=== PATIENT | female | born 1935 | race Caucasian/White ===

== ENCOUNTER 2016-05-25 09:07 | Inpatient (IN) ==
--- NOTE | 2016-05-25 09:27 | Emergency Department Note ---
Disposition Clinical Impression: Weakness generalized, Abnormal ECG, Pleural effusion on left Disposition: Admitted As Inpatient Condition: Fair Referrals: NO,PCP [Primary Care Provider] - Forms: ED Satisfaction Letter General Adult HPI - General Chief complaint: ED Weakness Stated complaint: Weakness Time Seen by Provider: 05/25/16 09:15 Source: patient Limitations: no limitations - History of Present Illness Pain Scale: 0 - Related Data Home Medications Medication Instructions Recorded Confirmed No Known Home Drugs 05/25/16 05/25/16 Allergies Allergy/AdvReac Type Severity Reaction Status Date / Time No Known Allergies Allergy Verified 05/25/16 10:05 Past Medical History - Past Medical History Medical history: Reports: no medical history Psychiatric history: Reports: no psych history - Social History Smoking Status: Current every day smoker Smokeless Tobacco Status: No Alcohol use: Reports: none Drug use: Reports: none Physical Exam - General Limitations: no limitations General appearance: alert Course Vital Signs Temperature 97.7 F 05/25/16 09:10 Pulse Rate 81 05/25/16 09:10 Respiratory Rate 16 05/25/16 09:10 Blood Pressure 117/66 05/25/16 09:10 O2 Sat by Pulse Oximetry 95 05/25/16 09:10 Temperature 97.7 F 05/25/16 09:10 Pulse Rate 80 05/25/16 10:21 Respiratory Rate 18 05/25/16 10:21 Blood Pressure 122/77 05/25/16 10:21 O2 Sat by Pulse Oximetry 97 05/25/16 10:21 Oxygen Delivery Oxygen Delivery Room Air Medical Decision Making - Lab Data Result diagrams: 05/25/16 09:49 05/25/16 09:49 Lab Results 05/25/16 05/25/16 05/25/16 Range/Units 09:49 09:49 09:49 WBC 10.9 (4.3-11.1) K/mcL RBC 4.87 (3.82-4.97) M/mcL Hgb 14.7 (11.5-15.4) g/dL Hct 43.3 (35.3-44.9) % MCV 88.9 (83.0-100.0) fL MCH 30.2 (28.0-33.3) pg MCHC 33.9 (31.6-35.5) g/dL RDW 13.9 (11.5-14.5) % Plt Count 282 (140-400) K/mcL MPV 10.4 (9.4-12.4) fL Immature Gran % 0.3 (0-4) % Seg Neutrophils % 77.6 % Lymphocytes % 12.7 % Monocytes % 9.0 % Eosinophils % 0.1 % Basophils % 0.3 % Neutrophils # 8.5 (1.6-8.9) K/mcL Lymphocytes # 1.4 (0.6-4.6) K/mcL Monocytes # 1.0 (0.0-1.3) K/mcL Eosinophils # 0.0 (0.0-0.6) K/mcL Basophils # 0.0 (0.0-0.2) K/mcL PT (9.4-12.1) Seconds INR APTT (26.0-36.0) Seconds Sodium 135 L (136-145) mEq/L Potassium 3.4 L (3.5-4.5) mEq/L Chloride 101 (98-109) mEq/L Carbon Dioxide 24 (19-29) mEq/L BUN 17 (7-20) mg/dL Creatinine 1.13 H (0.57-1.11) mg/dL Est GFR ( Amer) 56 L (> 60) Est GFR (Non-Af Amer) 46 L (> 60) BUN/Creatinine Ratio 15 (6-26) Glucose 114 H (70-99) mg/dL Calculated Osmolality 282 (280-300) Calcium 9.4 (8.6-10.8) mg/dL Magnesium 2.4 (1.6-2.6) mg/dL Total Bilirubin 1.4 H (0.2-1.2) mg/dL AST 131 H (5-34) Units/L ALT 44 (0-55) Units/L Alkaline Phosphatase 67 (38-126) Units/L Troponin I (0-0.03) ng/mL Serum Total Protein 7.4 (6.0-8.3) g/dL Albumin 3.6 (3.5-5.0) g/dL Globulin 3.8 H (2.4-3.5) g/dL Albumin/Globulin Ratio 0.9 L (1.1-2.2) 05/25/16 05/25/16 Range/Units 09:49 09:49 WBC (4.3-11.1) K/mcL RBC (3.82-4.97) M/mcL Hgb (11.5-15.4) g/dL Hct (35.3-44.9) % MCV (83.0-100.0) fL MCH (28.0-33.3) pg MCHC (31.6-35.5) g/dL RDW (11.5-14.5) % Plt Count (140-400) K/mcL MPV (9.4-12.4) fL Immature Gran % (0-4) % Seg Neutrophils % % Lymphocytes % % Monocytes % % Eosinophils % % Basophils % % Neutrophils # (1.6-8.9) K/mcL Lymphocytes # (0.6-4.6) K/mcL Monocytes # (0.0-1.3) K/mcL Eosinophils # (0.0-0.6) K/mcL Basophils # (0.0-0.2) K/mcL PT 13.9 H (9.4-12.1) Seconds INR 1.3 APTT 32.3 (26.0-36.0) Seconds Sodium (136-145) mEq/L Potassium (3.5-4.5) mEq/L Chloride (98-109) mEq/L Carbon Dioxide (19-29) mEq/L BUN (7-20) mg/dL Creatinine (0.57-1.11) mg/dL Est GFR ( Amer) (> 60) Est GFR (Non-Af Amer) (> 60) BUN/Creatinine Ratio (6-26) Glucose (70-99) mg/dL Calculated Osmolality (280-300) Calcium (8.6-10.8) mg/dL Magnesium (1.6-2.6) mg/dL Total Bilirubin (0.2-1.2) mg/dL AST (5-34) Units/L ALT (0-55) Units/L Alkaline Phosphatase (38-126) Units/L Troponin I 19.32 H* (0-0.03) ng/mL Serum Total Protein (6.0-8.3) g/dL Albumin (3.5-5.0) g/dL Globulin (2.4-3.5) g/dL Albumin/Globulin Ratio (1.1-2.2) Critical Care Time Critical Care Time: Yes Total Critical Care Time: 30 Attestation: The patient presented with weakness but no chest pain. EKG abnormal and sent to the car jockey for review. IV heparin started. Troponin resulted markedly elevated. She was admitted to the medicine service Attestation Statement - Attestation Attestation: I examined this patient and my medical decision-making was reviewed with the OFFSET LABEL REWINDER/PA/Advanced Practice Nurse/Resident Physician. I agree with the documented findings, disposition and treatment plan as described except to the extent set forth below. Face to face time provided EKG shows an ST segment elevation pattern with reciprocal changes. I evaluated the patient and she adamantly denies chest pain now or prior to arrival. No dyspnea. She states she has never had an EKG before. Was never told that she had an abnormal EKG in the past. We do not have any old EKGs for comparison. I did have the car jockey look at the EKG because of the abnormality 09:54: Dr. Snow reviewed the ECG image. He recommends medical management and admission to the medicine service
[2016-05-25] MEDS ORDERED: 0.9 % Sodium Chloride 1,000 ML IVC ONE (09:37)
[2016-05-25] MEDS ORDERED: Aspirin 81 MG TAB.CHEW PO ONE (09:37)
--- NOTE | 2016-05-25 09:41 | Emergency Department Note ---
Disposition Clinical Impression: Weakness generalized, Abnormal ECG, Pleural effusion on left, Elevated troponin , Renal insufficiency Disposition: Admitted As Inpatient Condition: Fair Referrals: NO,PCP [Primary Care Provider] - Forms: ED Satisfaction Letter Weakness HPI - General Chief complaint: ED Weakness Stated complaint: Weakness Time Seen by Provider: 05/25/16 09:15 Source: patient Mode of arrival: private vehicle Limitations: no limitations Nursing Notes Reviewed: Yes Vital Signs Reviewed: Yes - History of Present Illness Pt Subjective Complaint: generalized weakness/fatigue Onset (ago): day(s) (3) Duration: intermittent Location: generalized Migration: none Pain Severity: none Pain Scale: 0 Improves with: none Worsens with: none Associated symptoms: Reports: denies other symptoms, loss of appetite. Denies: chest pain, confusion, dark stools, diaphoresis, dysuria, easy bruising, fever/ chills, headaches, nausea/vomiting, myalgias, rash, shortness of breath, syncope , other - Related Data Home Medications Medication Instructions Recorded Confirmed No Known Home Drugs 05/25/16 05/25/16 Allergies Allergy/AdvReac Type Severity Reaction Status Date / Time No Known Allergies Allergy Verified 05/25/16 10:05 All systems ED: reviewed and negative except as stated. Constitutional: Reports: as per HPI, weakness. Denies: fever, chills, weight change, night sweats Eyes: Denies: eye pain, eye discharge, vision change ENT ED: Denies: ear pain, throat pain, congestion, dysphagia Cardiovascular: Denies: chest pain, palpitations, dyspnea on exertion, orthopnea , edema, syncope Respiratory: Denies: cough, dyspnea, wheezes, sputum production Gastrointestinal: Denies: abdominal pain, nausea, vomiting, diarrhea Genitourinary: Denies: urgency, dysuria, frequency, hematuria Musculoskeletal: Denies: back pain, neck pain, joint swelling, arthralgia Integumentary: Denies: rash, abrasion, lesions Neurological: Denies: headache, weakness, numbness, paresthesias, confusion, abnormal gait, vertigo Endocrine: Denies: fatigue, heat or cold intolerance, polydipsia, polyuria Hematological/Lymphatic: Denies: easy bleeding, easy bruising, lymphadenopathy Allergic/Immunologic: Denies: facial swelling, urticaria, itchy eyes Past Medical History - Past Medical History Attestation: Yes The following information was validated with the patient. Source: patient, obtained from family Medical history: Reports: no medical history Surgical history: Reports: no surgical history Psychiatric history: Reports: no psych history HAND GLUER AND SLICER history: Reports: no HAND GLUER AND SLICER history - Social History Smoking Status: Current every day smoker Smokeless Tobacco Status: No Alcohol use: Reports: none Drug use: Reports: none Physical Exam - General Limitations: no limitations General appearance: alert, in no apparent distress - Head Head exam: atraumatic, normocephalic, normal inspection - Eye Eye exam: Present: normal appearance, PERRL. Absent: scleral icterus, conjunctival injection, periorbital swelling - ENT ENT exam: normal exam, normal oropharynx, mucous membranes moist - Neck Neck exam: Present: normal inspection, full ROM, trachea midline. Absent: tenderness, meningismus, lymphadenopathy, thyromegaly - Chest Chest inspection: Present: normal inspection, symmetric chest wall rise. Absent : tenderness - Respiratory Respiratory exam: Present: normal lung sounds bilaterally. Absent: respiratory distress, wheezes, stridor, accessory muscle use, prolonged expiratory phase - Cardiovascular Cardiovascular exam: Present: regular rate, irregular rhythm - Abdominal Exam Abdominal exam: Present: soft, Non-Tender. Absent: distention, guarding, rebound, rigidity, organomegaly, mass, pulsatile mass - Extremities Exam Extremities exam: Present: normal inspection, full ROM, normal capillary refill. Absent: tenderness, pedal edema, joint swelling, calf tenderness - Back Exam Back exam: Present: normal inspection, full ROM. Absent: tenderness - Neurological Exam Neurological exam: Present: alert, oriented X3, CN II-XII intact, normal gait - Psychiatric Psychiatric exam: Present: normal affect, normal mood - Skin Skin exam: Present: warm, dry, intact, normal color Course Course Narrative: Patient presents from home with her for evaluation of generalized weakness for the past three days. She states, "he made me come in." She points to her . He states that she has been very fatigued and just wanting to stay in bed for the last three days. She agrees with this assessment. She has not had much of an appetite either, but has been staying hydrated. She denies pain anywhere and specifically denies chest pain, chest pressure, heaviness, or any unusual sensation in her chest. She denies shortness of breath, dyspnea on exertion, pain with inspiration, cough, hemoptysis, nausea, vomiting, diarrhea, fever or chills. She has had no skin rashes. No neck pain or stiffness. No headache and no recent travel. She states that she is otherwise healthy, although she has not seen a doctor in over a decade. She takes no medications on a daily basis. She has smoked a pack a day for many years. She has never had a stress test, an EKG, a heart catheterization, or any surgeries. She is unsure about her family medical history. On exam, Mr. Salter is a very pleasant, cooperative, smiling and well- appearing. She is a little hard of hearing. She does not appear to be uncomfortable and her vitals are normal. She has no peripheral edema, no obvious heart murmur, and no adventitious breath sounds. Abdomen is soft and nontender. Neuro exam is normal. EKG is very concerning. She does not have an old EKG for comparison. She has deep Q waves in inferior leads as well as ST depression in the lateral and septal leads. The EKG was taken to the Metallurgical Engineer for Dr. Snow to review. He called back and we discussed the case. He believes that the patient most likely had an NY about three days ago when her symptoms began. He protects that her troponin will be elevated and he recommends medical management with hospitalist admission. He recommends starting aspirin and heparin now. The case has been discussed with Dr. Owens. He has had [id number] time with patient, has reviewed her EKG and agrees with the assessment and plan. - Consultations Consultation #1: Discussed the case with Dr. Snow. He has seen the ECG. He states that the patient most-likely had an NY 3 days ago as she has long Q waves. He predicts that her troponin will be elevated. He recommends medical management and admission to the hospitalist. Time: 09:45 Vital Signs Temperature 97.7 F 05/25/16 09:10 Pulse Rate 81 05/25/16 09:10 Respiratory Rate 16 05/25/16 09:10 Blood Pressure 117/66 05/25/16 09:10 O2 Sat by Pulse Oximetry 95 05/25/16 09:10 Temperature 97.7 F 05/25/16 09:10 Pulse Rate 80 05/25/16 09:34 Respiratory Rate 16 05/25/16 09:34 Blood Pressure 112/78 05/25/16 09:34 O2 Sat by Pulse Oximetry 97 05/25/16 09:34 Oxygen Delivery Oxygen Delivery Room Air Weakness - Medical Records Medical records reviewed: Yes I reviewed the patient's medical records. - Lab Data Lab results reviewed: Yes I reviewed the patient's lab results. Lab results narrative: Laboratory Last Values WBC 10.9 K/mcL (4.3-11.1) 05/25/16 09:49 RBC 4.87 M/mcL (3.82-4.97) 05/25/16 09:49 Hgb 14.7 g/dL (11.5-15.4) 05/25/16 09:49 Hct 43.3 % (35.3-44.9) 05/25/16 09:49 MCV 88.9 fL (83.0-100.0) 05/25/16 09:49 MCH 30.2 pg (28.0-33.3) 05/25/16 09:49 MCHC 33.9 g/dL (31.6-35.5) 05/25/16 09:49 RDW 13.9 % (11.5-14.5) 05/25/16 09:49 Plt Count 282 K/mcL (140-400) 05/25/16 09:49 MPV 10.4 fL (9.4-12.4) 05/25/16 09:49 Immature Gran % 0.3 % (0-4) 05/25/16 09:49 Seg Neutrophils % 77.6 % 05/25/16 09:49 Lymphocytes % 12.7 % 05/25/16 09:49 Monocytes % 9.0 % 05/25/16 09:49 Eosinophils % 0.1 % 05/25/16 09:49 Basophils % 0.3 % 05/25/16 09:49 Neutrophils # 8.5 K/mcL (1.6-8.9) 05/25/16 09:49 Lymphocytes # 1.4 K/mcL (0.6-4.6) 05/25/16 09:49 Monocytes # 1.0 K/mcL (0.0-1.3) 05/25/16 09:49 Eosinophils # 0.0 K/mcL (0.0-0.6) 05/25/16 09:49 Basophils # 0.0 K/mcL (0.0-0.2) 05/25/16 09:49 PT 13.9 Seconds (9.4-12.1) H 05/25/16 09:49 INR 1.3 05/25/16 09:49 APTT 32.3 Seconds (26.0-36.0) 05/25/16 09:49 Sodium 135 mEq/L (136-145) L 05/25/16 09:49 Potassium 3.4 mEq/L (3.5-4.5) L 05/25/16 09:49 Chloride 101 mEq/L (98-109) 05/25/16 09:49 Carbon Dioxide 24 mEq/L (19-29) 05/25/16 09:49 BUN 17 mg/dL (7-20) 05/25/16 09:49 Creatinine 1.13 mg/dL (0.57-1.11) H 05/25/16 09:49 Est GFR ( Amer) 56 (> 60) L 05/25/16 09:49 Est GFR (Non-Af Amer) 46 (> 60) L 05/25/16 09:49 BUN/Creatinine Ratio 15 (6-26) 05/25/16 09:49 Glucose 114 mg/dL (70-99) H 05/25/16 09:49 Calculated Osmolality 282 (280-300) 05/25/16 09:49 Calcium 9.4 mg/dL (8.6-10.8) 05/25/16 09:49 Magnesium 2.4 mg/dL (1.6-2.6) 05/25/16 09:49 Total Bilirubin 1.4 mg/dL (0.2-1.2) H 05/25/16 09:49 AST 131 Units/L (5-34) H 05/25/16 09:49 ALT 44 Units/L (0-55) 05/25/16 09:49 Alkaline Phosphatase 67 Units/L (38-126) 05/25/16 09:49 Troponin I 19.32 ng/mL (0-0.03) H* 05/25/16 09:49 Serum Total Protein 7.4 g/dL (6.0-8.3) 05/25/16 09:49 Albumin 3.6 g/dL (3.5-5.0) 05/25/16 09:49 Globulin 3.8 g/dL (2.4-3.5) H 05/25/16 09:49 Albumin/Globulin Ratio 0.9 (1.1-2.2) L 05/25/16 09:49 - Radiology Data Radiology results reviewed: Yes I reviewed the patient's radiology results. Chest X-Ray 05/25/16 09:35 IMPRESSION: Mild streaky opacity to left lung base towards costophrenic angle along with mild blunting of the costophrenic angle concerning for small left pleural effusion with associated atelectasis or infiltrate. Clinical correlation and continued follow-up suggested. D/ / 05/25/2016 09:54:04 Denilson Maya MD / [email or web address] Interpreting Provider: Denilson Maya MD - EKG Data EKG attestation: Yes I reviewed and interpreted this EKG. EKG shows normal: sinus rhythm Rate: normal Rhythm: PAC's [place]/QRS: normal ST segment depression in: I, aVL Q waves: II, III, aVF, v2, v4 When compared to previous EKG there are: previous EKG unavailable Interpretation: other (probable recent NY - as per Dr. Snow) - Core Measures AMI Core Measures Followed: Yes Critical Care Time Critical Care Time: Yes (Dx and treatment of NY) Total Critical Care Time: 30 Attestation: Patient required critical care 30 minutes for time at bedside, time spent reviewing EKG, lab results and chest x-ray, consulting with Dr. Snow, the interventional list, reviewing results with the patient and her , and documenting the medical record. patient appears to have had an NY within the last several days - most likely when her symptoms began. Her troponin is 19. She has significant EKG changes. She was started on a heparin drip and admitted to telemetry. Failure to initiate the above treatment urgently would likely have resulted in sudden clinically significant life-threatening deterioration in the patient's condition.
[2016-05-25] MEDS ORDERED: *HR* Heparin 5,000 UNIT/ML VIAL IVP ONE (09:53)
[2016-05-25] MEDS ORDERED: *HR* Heparin 5,000 UNIT/ML VIAL IVP PRN (09:53)
[2016-05-25] MEDS ORDERED: Heparin 25,000 UNIT/500 ML D5W 25,000 UNIT/500 ML MLS IVC SCH (10:00)
[2016-05-25 10:06] LABS: Basophils % 0.3 %; Eosinophils % 0.1 %; Hematocrit 43.3 % (35.3-44.9); Hemoglobin 14.7 g/dL (11.5-15.4); Immature Granulocytes % 0.3 % (0-4); Lymphocytes # 1.4 K/mcL (0.6-4.6); Lymphocytes % 12.7 %; Mean Corpuscular HGB Conc 33.9 g/dL (31.6-35.5); Mean Corpuscular Hemoglobin 30.2 pg (28.0-33.3); Mean Corpuscular Volume 88.9 fL (83.0-100.0); Mean Platelet Volume 10.4 fL (9.4-12.4); Neutrophils # 8.5 K/mcL (1.6-8.9); Platelet Count 282 K/mcL (140-400); Red Blood Count 4.87 M/mcL (3.82-4.97); Red Cell Distribution Width 13.9 % (11.5-14.5); Segmented Neutrophils % 77.6 %
[2016-05-25 10:11] LABS: INR 1.3; Prothrombin Time 13.9 Seconds (9.4-12.1)
[2016-05-25 10:14] LABS: Activated Partial Thrombo Time 32.3 Seconds (26.0-36.0)
[2016-05-25 10:21] LABS: Albumin 3.6 g/dL (3.5-5.0); Albumin/Globulin Ratio 0.9 (1.1-2.2); Bilirubin,Total 1.4 mg/dL (0.2-1.2); Calcium 9.4 mg/dL (8.6-10.8); Globulin 3.8 g/dL (2.4-3.5); Potassium 3.4 mEq/L (3.5-4.5); Total Protein 7.4 g/dL (6.0-8.3)
[2016-05-25 11:04] LABS: Thyroid Stimulating Hormone 7.375 mcIU/mL (0.350-4.840)
[2016-05-25 11:16] LABS: Bilirubin,Direct 0.5 mg/dL (0.0-0.5); Bilirubin,Indirect 0.9 mg/dL (0.0-1.2)
--- NOTE | 2016-05-25 11:19 | Internal Med History&Physical ---
Date of Encounter: 05/25/16 Time of Encounter: 11:16 Assessment and Plan (1) Renal insufficiency Current visit: Yes Status: Acute Likely due to decreased PO intake the past 3 days. gentle hydration. follow intake and output. (2) ST elevation myocardial infarction (STEMI) of inferoposterior wall Current visit: Yes Status: Acute Patient had info posteriors stemming on silk likely Saturday night 3 days ago. So complaint is fatigue. No active chest. No clinical signs of heart failure or arrhythmias on the school guard. Patients will be started on full anti- ischemic medications including aspirin beta angelo and full dose heparin. Echocardiogram will be checked. Cardiology service will see the patient. Continous telemetry monitoring for arrythmias. (3) Elevated TSH Current visit: Yes Status: Acute Would check free T4. Internal Medicine - H&P: HPI Chief complaint: fatigue History of present illness: Ms. Salter is a 80 year old female with no significant past medical history presents to the emergency room today with the main complain over easy fatigue ability. On Saturday night approximately 3 days ago patient started noticing easy fatigue ability, decrease exercise tolerance, tiredness etc. She also complained that night all some sweating. Her appetite has not been so good but she denied any vomiting. She denied any chest pain whatsoever no shortness of breath orthopnea paroxysmal optimal Sunita or lower extremity swelling. No syncope. No prior history of heart disease. On arrival to the emergency room patient was found to have evidence of info posteriors STEMI with development of Q waves. She is a smoker smokes 1 to 2 cigarettes a day for the past 30 years. she denies IV drug use. Past Med Surg Social Fam HX - Past Medical History Medical history: no medical history Psychiatric history: no psych history - Past Surgical History Surgical History: no surgical history - Social History Smoking Status: Current every day smoker Smokeless Tobacco Status: No Alcohol use: none Drug use: none Internal Medicine - H&P: Meds No Known Home Drugs 05/25/16 [History] Allergies No Known Allergies Allergy (Verified 05/25/16 10:05) All Systems PM: A 10-system review of systems was performed and is negative for pertinent findings except as documented above in the HPI. Review of systems: 10 point review of systems is negative except for HPI - Constitutional Vitals: Temp Pulse Resp BP Pulse Ox 97.7 F 80 16 122/77 97 05/25/16 09:10 05/25/16 10:21 05/25/16 10:59 05/25/16 10:59 05/25/16 10:21 Exam: Gen.: patient is alert oriented not in distress. Cardiac: Normal S1 S2 no additional sounds or murmurs chest: clear to auscultation abdomen soft nontender nondistended normal bowel sounds lower extremity: lax calf muscles neuro no focal deficit Internal Med - H&P Results - Labs CBC & Chem 7: 05/25/16 09:49 05/25/16 09:49
[2016-05-25] MEDS: 0.9 % Sodium Chloride 500 ML IVC SCH (11:44)
--- NOTE | 2016-05-25 13:09 | Cardiology Consult Note ---
<Jorge Grier - Last Filed: 05/25/16 15:06> Date of Encounter: 05/25/16 Time of Encounter: 12:30 Assessment and Plan (1) Acute DC Current Visit: Yes Status: Acute Per cardiology: -Patient presents with 3 day weakness and fatigue. -ECG with ST elevation in III, and avf. ST depression in I,avr, avl. Q waves noted. reviewed and determined not STEMI. -Initial troponin 19.32. -On asa, beta angelo, statin, heparin drip. -Echo pending. -Recommend LHC. Risks and benefits of LHC explained to patient and family. Patient agreeable. Discussed with and . -Will decrease asa to 81mg po daily. -Further recommendations pending LHC. (BESSIE) Qualifiers: Myocardial infarction ST status: non-ST elevation myocardial infarction Qualified Code(s): I21.4 - Non-ST elevation (NSTEMI) myocardial infarction (2) Renal insufficiency Current Visit: Yes Status: Acute Per cardiology: -Creatinine 1.13. Unknown baseline. -Management per primary service. (BESSIE) (3) Elevated TSH Current Visit: Yes Status: Acute Per cardiology: -TSH elevated. -No history of hypothyroidism. -Unknown basleline. -Management per primary service. (BESSIE). (4) Tobacco abuse Current Visit: Yes Status: Acute Per cardiology: -Current smoker. -Smoked 0.25 packs per day for 60 years for a 20 pack year history. -Smoking cessation education given. I spent 5 minutes reviewing education. (BESSIE) . Discussion w patient/family: The assessment and plan as outlined above was discussed with the patient and/or family members who expressed understanding and agreement. All questions were answered. Thank you for involving us in the care of your patient. Please call with any questions. Patient seen and examined with NORTH Paredes Discussed and reviewed with and . History of Present Illness Consult date: 05/25/16 Requesting physician: Jhon Burrell Consult reason: STEMI? Chief complaint: Weakness History of present illness: Ms. Salter is a 80 year old female with no significant past medical history. Patient states she has not seen a provider since the of her youngest son, who is 52. Patient presented to ER with weakness. Patient states weakness started on Saturday. She also states that she did not want to come into the hospital, but her made her come. ER performed ECG which showed Sinus rhythm, HR [address] elevation in III, avf and ST depression in I, avr, avl. Q waves noted. reviewed ECG and determined that this was not a STEMI. Patient was admitted to the floor. Patient denies ever having chest pain, heaviness, tightness, or shortness of breath. Pateint is a current smoker and smoked about 0.25 pack per day for 60 years. (BESSIE) Past Med Surg Social Fam HX - Past Medical History Attestation: Yes The following information was validated with the patient. Medical history: no medical history Psychiatric history: no psych history - Past Surgical History Surgical History: no surgical history - Social History Smoking Status: Current every day smoker Packs per day: 0.5 Smokeless Tobacco Status: No Alcohol use: none Drug use: none Medications and Allergies No Known Home Drugs 05/25/16 [History] Allergies No Known Allergies Allergy (Verified 05/25/16 10:05) All Systems Review: A 10-system review of systems was performed and is negative for pertinent findings except as documented above in the HPI. - Constitutional Constitutional: fatigue - Cardiovascular Cardiovascular: as per HPI Physical Examination Vital Signs, Last 4 Hours Temp Pulse Resp BP Pulse Ox 05/25/16 11:12 98.2 F 77 16 132/86 96 General: Conversant, No Apparent Distress HEENT: Atraumatic, Normocephaly, Mucus Membranes Moist Neck: No JVD, Normal carotid pulses Cardiac: Reg Rate and Rhythm, Normal S1 and S2, No Murmur Lungs: Normal Breath Sounds, No Wheeze, Rales, Rhonchi Neuro: Alert and responsive, No focal deficits noted Abdomen: Soft, Non-Tender Skin: No rashes noted on visualized skin Musculoskeletal: No Chest Wall Tenderness Extremities: No Clubbing, No Cyanosis, No Edema, Normal Pulses Results 05/25/16 09:49 05/25/16 09:49 Impressions Chest X-Ray 05/25/16 09:35 IMPRESSION: Mild streaky opacity to left lung base towards costophrenic angle along with mild blunting of the costophrenic angle concerning for small left pleural effusion with associated atelectasis or infiltrate. Clinical correlation and continued follow-up suggested. D/ / 05/25/2016 09:54:04 Denilson Maya MD / [email or web address] Interpreting Provider: Denilson Maya MD Active Medications Aspirin (Aspirin) 325 mg PO DAILY BETO Stop: 11/25/16 09:01 Atorvastatin Calcium (Lipitor) 20 mg PO HS BETO Stop: 11/24/16 21:01 Famotidine (Pepcid) 20 mg PO DAILY BETO PRN Reason: Protocol Stop: 11/25/16 09:01 Heparin Sodium (Porcine) (Heparin) 3,800 unit 60 unit/kg (3800 unit) IVP Q6HR PRN PRN Reason: SEE COMMENTS Stop: 11/24/16 09:54 Heparin Sodium (Porcine) (Heparin) 1,900 unit 30 unit/kg (1900 unit) IVP Q6H PRN PRN Reason: SEE COMMENTS Stop: 11/24/16 09:54 Heparin Sodium/Dextrose (Heparin 25,000 Unit/500 Ml D5w) 25,000 unit in 500 mls @ 15.241 mls/hr IVC .Q24H BETO; 12 UNIT/KG/HR PRN Reason: Protocol Stop: 11/24/16 10:01 Last Admin: 05/25/16 10:18 Dose: 12 unit/kg/hr, 15.241 mls/hr Sodium Chloride (0.9 % Sodium Chloride) 500 mls @ 40 mls/hr IVC .[id number] BETO Stop: 11/24/16 11:16 Last Admin: 05/25/16 11:44 Dose: 40 mls/hr Metoprolol Tartrate (Lopressor) 12.5 mg PO BID BETO Stop: 11/24/16 12:00 Laboratory Tests 05/25/16 05/25/16 05/25/16 09:49 09:49 09:49 Hgb 14.7 Hct 43.3 Potassium 3.4 L Creatinine 1.13 H Est GFR (Non-Af Amer) 46 L Troponin I 19.32 H* TSH 7.375 H - Imaging and Cardiology Chest Xray: report reviewed Cardiac cath: pending - EKG Interpretation EKG results cardiology: personally reviewed (ECG with sinus rhythm, HR 82. ST elevation in leads III and avf. ST depression in Leads I, avr, avl. Q waves noted.), other (Telemetry reviewed with average HR 89. Occasional PVCs noted. Ferequent PACs noted.) Consult Discharge Plan - Plan Referrals: Gay Turner [employer] [Advanced Practice Nurse] - 05/31/16 9:00 am (Please show up 30 mins early to fill out paper work. Take with you to your appointment you Picture ID, Ins. Cards. and a list of all medications. Take discharge paper work. If you have to cancel please call [phone] within 24 hours of your appointment. Thanks) <Ilda Allen - Last Filed: 05/25/16 15:44> Date of Encounter: 05/25/16 Assessment and Plan Discussion w patient/family: The assessment and plan as outlined above was discussed with the patient and/or family members who expressed understanding and agreement. All questions were answered. Thank you for involving us in the care of your patient. Please call with any questions. History of Present Illness History of present illness: Ms. Salter is a 80 year old female All Systems Review: A 10-system review of systems was performed and is negative for pertinent findings except as documented above in the HPI. Results 05/25/16 09:49 05/25/16 09:49 - Attending Attestation I examined this patient and my medical decision-making was reviewed with the COUNTER CLERK [employer]/PA/Advanced Practice Nurse/Resident Physician. I agree with the documented findings, disposition and treatment plan. Ms. Salter presents with profound weakness and was incidentally discovered to have an abnormal ECG suggesting a recent inferior infarct. Her symptoms began this past Saturday. She has not seen a physician since the of her son 52 years ago. She has smoked for 60 years. Her troponin has now elevated to 19. We have discussed proceeding with a [facility]. The R/B/A of the procedure were discussed. Patient expressed understanding and agreement. Smoking cessation was strongly encouraged.
[2016-05-25] MEDS ORDERED: 0.9 % Sodium Chloride 1,000 ML ONE ×2 (14:01→14:43)
[2016-05-25] MEDS ORDERED: Heparin 1,000 UNITS/500 mL NS 500 ML ONE (14:02)
[2016-05-25] MEDS ORDERED: *HR* Heparin 10,000 UNIT/10 ML VIAL ONE (14:02)
[2016-05-25] MEDS ORDERED: Nitroglycerin 1,000 MCG/10 ML VIAL IV ONE (14:09)
[2016-05-25] MEDS ORDERED: *HR* Midazolam HCl 2 MG/2 ML VIAL ONE (14:42)
[2016-05-25] MEDS ORDERED: *HR* FentaNYL (PF) 100 MCG/2 ML VIAL ONE (14:43)
--- NOTE | 2016-05-25 15:13 | Pre-Sedation Evaluation ---
Pre-sedation evaluation - Pre-sedation checklist Date of procedure: 05/25/16 Procedure: [facility] Recent Vitals: Last Vital Signs Temp 98.2 F 05/25/16 11:12 Pulse 77 05/25/16 11:12 Resp 16 05/25/16 11:12 BP 132/86 05/25/16 11:12 Pulse Ox 96 05/25/16 11:12 H&P (including ROS) documented in medical record: Yes Previous reaction to sedatives/anesthetics: No Dietary Status: NPO after Midnight Airway Assessment: Patient can open mouth completely, TMJ function normal Dentition: No loose teeth or bridges ASA Classification *see protocol: CLASS II-Mild systemic disease Plan of Care: Pt appropriate candidate for procedure/moderate/conscious sedation , Risks/benefits of procedure/sedation discussed w/ patient/family
--- NOTE | 2016-05-25 15:55 | Invasive Diagnostic Lab Proc ---
Name: Roxana Salter Date of Study: 05/25/2016 Date: 1935 Ht: 61.8in Medical Record#: [id number] Age: 80 Wt: 141.10lb Gender: Female BSA: 1.64 Order #: [id number] BMI: 25.96 Physicians Procedure Physician: Paul Snow MD, FACC Referring MD: Referring MD: Staff Name Position Time In Trinity White RT Monitor 03:08 PM John Sethie RT (R) Scrub 03:08 PM Asha Delacruz RN Racebook Writer 03:08 PM Indications Indication Non-Stemi Procedures Performed Procedure L HRT ARTERY/VENTRICLE ANGIO Pre-Procedure Checklist Informed consent is complete signed and on chart. H\\T\\P is on chart. ID band is on and ID verified with patient. Patient NPO for procedure The procedure was described for the patient and questions were answered. Blood Pressure: 132/67 ECG is on chart. Rhythm: NSR Plan of Care Patient will tolerate the procedure without complications. Adequate level of comfort will be maintained. Hemodynamics will remain stable Patient will recover from procedure without complications. Respiratory function will be maintained. Cardiac rhythm will remain stable. Patient temperature will be maintained. Patient and/or family have verbalized understanding of the procedure. Patient Education Chief Complaint/Reason for Test: Cardiac Cath Developmental Category: Geriatric (65+ years) Developmentally Appropriate for Age: Yes Learning Barriers: None Education Needs: Procedure Education Method: Verbal Information Taught: Cardiac Cath Educational Evaluation: Able to repeat information Intravenous Access Time IV Size Location DC'd Fluid/Drip Rate Units RN 01:53 PM 20g 1 /" Patent On Arrival 0.9NaCl 25 Allergies No Known Allergies Vital Signs Time BP (mmHg) HR (bpm) O2 Sat. RR (bpm) LOC 01:53 PM 132 / 86 77 96 % 16 03:11 PM / % 5 = Fully awake and oriented or at pre-proc level 03:11 PM / % 4 = Oriented but drowsy 03:05 PM 157 / 92 90 97 % 24 03:09 PM 132 / 67 88 98 % 6 03:14 PM 99 / 56 67 93 % 25 03:19 PM 92 / 52 102 96 % 20 03:22 PM 102 / 60 85 96 % 23 03:24 PM 110 / 66 81 96 % 22 03:29 PM 118 / 63 81 97 % 22 03:34 PM 121 / 74 80 96 % Procedural Medications Time Medication Dose Units Method Given By 03:10 PM Oxygen 2 L/min nasal cannula Asha Delacruz RN 03:10 PM Versed 2 mg Intravenous Asha Delacruz RN 03:10 PM Fentanyl 50 mcg Intravenous Asha Delacruz RN 03:17 PM Lidocaine 2% 14 ml Subcutaneous Paul Snow MD, [facility] ASA Classification: CLASS II- Mild systemic disease (i.e. well-controlled diabetes, hypertension, asthma, cigarette smoking) Radha Score Preprocedure Postprocedure Activity 2- Moves 4 extremities sustained head lift Activity 2- Moves 4 extremities sustained head lift Circulation 2- SBP +/= 20 points of pre-anesthetic level Circulation 2- SBP +/= 20 points of pre-anesthetic level Consciousness 2- Awake and alert oriented x 3 Consciousness 2- Awake and alert oriented x 3 O2 Saturation 2- Able to maintain O2 satruation of 92% on room air O2 Saturation 2- Able to maintain O2 satruation of 92% on room air Respiratory 2- Able to deep breathe and cough well Respiratory 2- Able to deep breathe and cough well Total Score 10 Total Score 10 Contrast Agent: Isovue Diagnostic Contrast: 55 ml Total Contrast: 55 ml Fluoro Dose: 145 mGy Procedure Log Time Note Enter By 03:03 PM Vitals capture started with the following parameters, Patient=Adult, Interval=5 min, Initial Bistrmkl=184 mmHg, Deflation Rate=5 mmHg, Cuff placed on Left Arm 03:03 PM CathStat 03:05 PM HR=90 bpm, BGOO=311/92 mmhg, SpO2=97.0 %, Resp=24 B/min 03:08 PM Pt arrived to clinical laboratory assistant 2 at 15:08 [email or web address] 03:08 PM Trinity White RT Position: Monitor Time in: 15:08 [email or web address] 03:08 PM Maite Sethi RT (R) Position: Scrub Time in: 15:08 [email or web address] 03:08 PM Asha Delacruz RN Position: Racebook Writer Time in: 15:08 kkner 03:08 PM staff aware pt has bilateral hearing aids kkallner 03:09 PM Patient charges- Angio tray pack, Navilyst 3mm J, Pulse Oximetry and ACIST tubing and transducer [email or web address] 03:09 PM Case Delayed No [email or web address] 03:09 PM Hair removed from procedure site in procedure lab using clippers. Bilateral groin prepped with Chloraprep by Trinity White, safety strap applied then patient was draped. Skin intact. kk 03: PM Physician arrived 15:: PM ASA Class CLASS II- Mild systemic disease (i.e. well-controlled diabetes, hypertension, asthma, cigarette smoking) kkner : PM Meet and camila completed : PM Sign in performed according to hospital policy. kk 03: PM Procedure start 15: 03:09 PM HR=88 bpm, FFZT=446/67 mmhg, SpO2=98.0 %, Resp=6 B/min, Comment=sr 03:10 PM Pressure channel 1 zeroed. 03:10 PM Time: 15:10 Oxygen on at 2 L/min per nasal cannula by Asha Delacruz RN 03:10 PM Time: 15:10 Versed 2 mg Intravenous Given by Asha Delacruz RN jina 03:10 PM Time: 15:10 Fentanyl 50 mcg Intravenous Given by Asha Delacruz RN jina 03:11 PM Time: 15:11 Patient comfortable and pain free: Yes :11 PM Time: 15:11LOC: 5 = Fully awake and oriented or at pre-proc level 03:12 PM Clinical Presentation: Non-STEMI 03:14 PM HR=67 bpm, NIBP=99/56 mmhg, SpO2=93.0 %, Resp=25 B/min 03:16 PM Time out performed according to hospital policy 03:18 PM Time: 15:17 14 ml Lidocaine 2% to left groin Subcutaneous Given by Paul Snow MD, FACC ner 03:19 PM OG=555 bpm, NIBP=92/52 mmhg, SpO2=96.0 %, Resp=20 B/min, Comment=sr 03:21 PM Access obtained by percutaneous puncture. 5Fr 10cm Terumo [place] sheath placed in left Femoral artery. [id number] ner 03:21 PM 5Fr FL 4 catheter inserted over the wire DNC kkner : PM wire removed :22 PM LCA angiography performed in multiple views. [email or web address] 03:22 PM NIBP STAT measurement started. 03:22 PM Recorded Pressure: Ao, HR=81, Condition=Condition 1 (Aorta) Ao 86/54/68 03:22 PM HR=85 bpm, MWTQ=443/60 mmhg, SpO2=96 %, Resp=23 B/min 03:23 PM Catheter removed [email or web address] 03:23 PM 5Fr FR 4 catheter inserted over the wire DN [email or web address] 03:24 PM HR=81 bpm, QPJE=334/66 mmhg, SpO2=96.0 %, Resp=22 B/min 03:24 PM wire removed [email or web address] 03:25 PM Catheter removed kkallner 03:26 PM 5Fr 3DRC catheter inserted over the wire [id number] kkallner 03:26 PM wire removed kkallner 03:26 PM Time: 15:11LOC: 4 = Oriented but drowsy kkallner 03:26 PM Time: 15:11 Patient comfortable and pain free: Yes [email or web address] 03:26 PM RCA angiography performed in multiple views. [email or web address] 03:27 PM Recorded Pressure: Ao, HR=78, Condition=Condition 1 (Aorta) Ao 98/70/84 03:28 PM Catheter removed kkallner 03:28 PM 5Fr Pigtail catheter inserted over the wire [facility] kkallner 03:28 PM wire removed kkallner 03:28 PM Catheter selectively placed in left ventricle kkallner 03:29 PM Pressure channel 1 zeroed. 03:29 PM HR=81 bpm, MYEX=787/63 mmhg, SpO2=97 %, Resp=22 B/min 03:29 PM Bolus angiogram of left Ventricle complete: 12 ml/sec for a total of 20 mls kkallner 03:29 PM Recorded Pressure: LV, HR=82, Condition=Condition 1 (Left Ventricle) LV 104/0/9 03:30 PM Recorded Pressure: LV, Ao, HR=78, Condition=Condition 1 (Left Ventricle) LV 106/1/10, (Aorta) Ao 99/54/73 03:31 PM 5Fr FL 4 catheter inserted over the wire [facility] kkallner 03:31 PM wire removed kkallner 03:31 PM additional views of LCA obtained kkallner 03:32 PM Recorded Pressure: Ao, HR=81, Condition=Condition 1 (Aorta) Ao 98/57/75 03:32 PM Catheter removed [email or web address] 03:33 PM Bolus angiogram of left Femoral complete: 2 ml/sec for a total of 4 mls kkallner 03:34 PM Procedure completed at 15:34 [email or web address] 03:34 PM HR=80 bpm, GTEY=516/74 mmhg, SpO2=96.0 % 03:34 PM Sign out completed: Radiation Dose 145.41 mGy Fluoro Time: 2.4 Isovue 370 - 200ml contrast 55 ml given by Paul Snow MD, FACC. Complications: NoneCardiac Rehab Consult needed: YesConfirmed administered medications: Yes [email or web address] 03:35 PM Isovue 370 - 200ml,1 Bottle(s) used. [email or web address] 03:36 PM Arterial sheath pulled, Mynx closure device used and was Successful [id number] S/N. kkallner 03:36 PM Post ECG NSR kkallner 03:36 PM Post Blood Pressure 121/74 kkallner 03:37 PM 15:36 Post Pulses Bilateral DP \\T\\ PT 1+ kkallner 03:37 PM Information taught Cardiac Cath and Mynx kkallner 03:37 PM Education needs Procedure, Plan of Care, and Responsibilities of Patient in Care [email or web address] 03:37 PM Learning barriers :None kkallner 03:37 PM Education Methods Verbal kkallner 03:37 PM Education evaluation Able to repeat information kkallner 03:38 PM Site status No bleeding/hematoma - Lt Groin as reported by Maite Sethi RT (R) at 15:37 kkallner 03:38 PM Opsite applied kkallner 03:38 PM Plavix, Effient or Brilinta given No kkallner 03:38 PM Delay to floor No kkallner 03:38 PM Patient out of room: 15:38 kkallner 03:39 PM Family placed in consult room. [email or web address] 03:39 PM Complications: None kkallner 03:39 PM Fluoro Time: 2.4 [email or web address] 03:39 PM Isovue 370 - 200ml contrast 55 ml given by Paul Snow MD, FACC. [email or web address] 03:39 PM Radiation Dose 145.41 mGy kkallner 03:40 PM Lesion found in Mid LAD. Pre Stenosis: 95 Pre COLTON Flow: [email or web address] 03:40 PM Lesion found in 1st Marginal. Pre Stenosis: 99 Pre COLTON Flow: kkallner 03:41 PM Lesion found in 2nd Marginal. Pre Stenosis: 95 Pre COLTON Flow: kkallner 03:41 PM Lesion found in Proximal RCA. Pre Stenosis: 100 Pre COLTON Flow: [email or web address] 03:41 PM Mid/Distal Left Anterior Descending Coronary Artery and diagonal branches with 95% stenosis. If graft is supplying this area, 0 % stenosis kkallner 03:41 PM Left Main Coronary Artery with 0% stenosis kkallner 03:41 PM Proximal Left Anterior Descending Coronary Artery with 0% stenosis. If graft is supplying this territory, 0 % stenosis. kkallner 03:41 PM Circumflex, Obtuse Marginal, Left Posterior Descending, and Left Posterolateral Coronary Arteries with 99 % stenosis. If graft is supplying this area, 0 % stenosis kkallner 03:41 PM Right Coronary, Right Posterior Descending Arteries with Right Posterolateral and Acute Marginal branches with 100 % stenosis. If graft is supplying this area, 0 % stenosis kkallner 03:41 PM Ramus with 0% stenosis. If graft is supplying this area, 0 % stenosis kkallner 03:[address] Michael vega for CABG consult kkallner 03:43 PM Coronary Dominance: right kkallner 03:45 PM Lesion found in Mid Circumflex. Pre Stenosis: 60 Pre COLTON Flow: [email or web address] 03:47 PM Report given to Darlin GOODMAN Pt taken to Room #6. 15:47 [email or web address] Complications Complication None None Hemodynamics Pressures Site Systolic/A Wave Diastolic/V Wave Mean AO 86 54 68 AO 98 70 84 LV 104 0 9 LV 106 1 10 AO 99 54 73 AO 98 57 75 Post Procedure Information Blood Pressure: 121/74 mmHg Rhythm: NSR Post procedural instructions were given Surgery consult for CABG Closure Device Time Device Success/Fail 05/25/2016 3:39:00 PM MynxGrip Successful Site Checks Time Location Status Staff Sheath In? Note 03:37 PM Lt Groin No bleeding/hematoma Maite Sethi RT (R) Pulses Time Site Pre-Procedure Post-Procedure Note 05/25/2016 1:53:00 PM Bilateral radial 2+ 05/25/2016 1:53:00 PM Bilateral DP \\T\\ PT 1+ 3:36:00 PM Bilateral DP \\T\\ PT 1+ Updated by Trinity White, RT (R) on 05/25/2016 3:48:32 PM electronically signed on 05/25/2016 3:49:07 PM with status of Final
--- NOTE | 2016-05-25 16:04 | Invasive Diagnostic Lab ---
Name: Roxana Salter Date of Study: 05/25/2016 Date: 1935 Ht: 157.0 cm /61.8 in Medical Record#: [id number] Age: 80 Wt: 64. kg / 141.10 lb Account/Order#: [id number] Gender: Female BSA: 1.64 Order #: [id number] Fluoro Dose: 145 mGy BMI: 25.96 Procedure Physician: Paul Snow MD, FACC Referring MD: Referring MD: Procedures Performed: LEFT HEART CATH Iliofemoral angiography Indications: Non-Stemi Impressions: There is severe three vessel coronary artery disease. The left ventricle has normal contractility EF 60% Recommendations: Optimal medical therapy of patient's disease. Aggressive risk factor modification. Suggest patient have Elective coronary artery bypass surgery. History/Risk Factors: renal insufficiency fatigue Current/Recent Smoker Procedure Access obtained in the left Femoral artery by percutaneous puncture Complications: None, None Contrast: Isovue 55ml Closure Device: MynxGrip Hemodynamics: Pressures Site Systolic/ A Wave Diastolic/ V Wave End Diastolic/ Mean HR AO 86 54 68 81 AO 98 70 84 78 LV 104 0 9 82 LV 106 1 10 74 AO 99 54 73 83 AO 98 57 75 81 LV Ventriculography Ejection Method: LV Gram Ejection Fraction: 60% Wall Motion: SOUTH Anterobasal Hyperkinesis Anterolateral Hyperkinesis Apical: Hyperkinesis Inferoapical Mild Hypokinesis Inferobasal Severe Hypokinesis Coronary Dominance: right Lesion Findings/Interventions * Left Main Coronary Artery The LMCA is angiographically free of disease. * Left Anterior Descending There is a 70% proximal LAD stenosis and 95% and 70 stenosis in the Mid LAD. * Circumflex There is a 60% stenosis in the Proximal Circumflex. There is a 95% stenosis in the 1st Marginal. There is a 90% stenosis in the 2nd Marginal. * Right Coronary Artery There is a 100% stenosis in the Proximal RCA. There are faint left to right collaterals present. Visualized portion of the iliofemoral artery shows 70% external iliac disease and 50% INSPECTOR SEMICONDUCTOR WAFER disease. Appropriate sheath placement for closure device. Updated by Trinity White RT (R) on 05/25/2016 3:50:54 PM Paul Snow MD, FACC electronically signed on 05/25/2016 4:01:14 PM with status of Final
[2016-05-25] MEDS: Heparin 25,000 UNIT/500 ML D5W 25,000 UNIT/500 ML MLS IVC SCH (16:13)
[2016-05-25 17:04] LABS: Potassium 3.3 mEq/L (3.5-4.5)
[2016-05-25] MEDS: *HR* Heparin 5,000 UNIT/ML VIAL IVP PRN (17:28)
--- NOTE | 2016-05-25 18:18 | Electrocardiograph Report ---
[facility] [employer] Test Date: 2016-05-25 Pat Name: Roxana Salter Department: 104 Room: 2N06 Gender: F Shut Off Worker: ADAL : 1935 Requested By: Loren Steward Order Number: [id number] Reading MD: Noa Ma DO Measurements Intervals [place] Rate: 82 P: 70 AR: 173 QRS: -31 QRSD: 86 T: -2 QT: 388 QTc: 426 Interpretive Statements SINUS RHYTHM WITH OCCASIONAL SUPRAVENTRICULAR PREMATURE COMPLEXES POSSIBLE LEFT ATRIAL ENLARGEMENT POSSIBLE LEFT VENTRICULAR HYPERTROPHY INFERIOR MYOCARDIAL INFARCTION, PROBABLY RECENT WITH POSTERIOR EXTENSION ACUTE HI Electronically Signed On 05-25-2016 18:16:28 EDT by Noa Ma DO
[2016-05-25 18:43] LABS: Bilirubin,Urine Negative (Negative); Blood,Urine Small (Negative); Color,Urine Dark Yellow (Yellow); Glucose,Urine (UA) Normal (Normal); Ketones,Urine Trace mg/dL (Negative); Leukocyte Esterase,Urine Negative (Negative); Nitrite,Urine Negative (Negative); Protein,Urine Negative (Neg-Trace); Specific Gravity,Urine > 1.030 (1.010-1.025)
[2016-05-25 18:44] LABS: Bacteria,Urine Few per hpf (None-Few); RBC,Urine 0-3 per hpf (0-3); Squamous Epithelial Cell,Urine Many per lpf (None-Few)
[2016-05-25 18:46] LABS: Clarity,Urine Hazy (Clear)
[2016-05-25 18:57] LABS: Hyaline Casts,Urine None Seen per lpf (None-Few)
[2016-05-26 00:33] LABS: Basophils % 0.3 %; Hematocrit 37.7 % (35.3-44.9); Immature Granulocytes % 0.5 % (0-4); Lymphocytes # 1.5 K/mcL (0.6-4.6); Lymphocytes % 14.9 %; Mean Corpuscular HGB Conc 32.6 g/dL (31.6-35.5); Mean Corpuscular Hemoglobin 29.5 pg (28.0-33.3); Mean Corpuscular Volume 90.4 fL (83.0-100.0); Mean Platelet Volume 10.5 fL (9.4-12.4); Monocytes % 9.4 %; Neutrophils # 7.7 K/mcL (1.6-8.9); Platelet Count 181 K/mcL (140-400); Red Blood Count 4.17 M/mcL (3.82-4.97); Segmented Neutrophils % 74.9 %
[2016-05-26 00:41] LABS: Hemoglobin 12.3 g/dL (11.5-15.4)
[2016-05-26 00:48] LABS: BUN/Creatinine Ratio 19 (6-26); Blood Urea Nitrogen 18 mg/dL (7-20); Calcium 8.4 mg/dL (8.6-10.8); Carbon Dioxide 24 mEq/L (19-29); Chloride 103 mEq/L (98-109); Glucose 104 mg/dL (70-99); Magnesium 2.1 mg/dL (1.6-2.6); Osmolality,Calculated 282 (280-300); Potassium 3.2 mEq/L (3.5-4.5); Sodium 135 mEq/L (136-145); eGFR For African Americans > 60 (> 60); eGFR For Non-African Americans 58 (> 60)
[2016-05-26 00:52] LABS: Chol/HDL Ratio 3.2 (0-4.9)
[2016-05-26 01:01] LABS: Activated Partial Thrombo Time 143.1 Seconds (26.0-36.0)
[2016-05-26 01:06] LABS: Heparin anti-factor XA UFH 0.82 IU/mL (0.30-0.70)
[2016-05-26] MEDS ORDERED: 0.9 % Sodium Chloride 1,000 ML ONE (02:13)
[2016-05-26] MEDS: 0.9 % Sodium Chloride 500 ML IVC SCH ×2 (02:20→02:27)
[2016-05-26 02:49] LABS: Hemoglobin A1C 5.4 %
[2016-05-26 07:30] LABS: Activated Partial Thrombo Time 166.6 Seconds (26.0-36.0)
[2016-05-26 08:22] LABS: Heparin anti-factor XA UFH 0.86 IU/mL (0.30-0.70)
[2016-05-26] MEDS ORDERED: Potassium Chloride 40 MEQ, Lidocaine 1% 2 ML in D5% in Water 500 ML IVPB ONE (08:34)
[2016-05-26] MEDS: Famotidine 20 MG TABLET PO SCH (08:38)
[2016-05-26] MEDS: Aspirin 81 MG TAB.CHEW PO SCH (08:39)
[2016-05-26] MEDS ORDERED: Aspirin 325 MG TABLET PO SCH (09:00)
--- NOTE | 2016-05-26 09:30 | Cardiothoracic Consult Note ---
Date of Encounter: 05/26/16 Time of Encounter: 09:27 Assessment and Plan (1) Acute [place] Current Visit: Yes Status: Acute The patient is a 80-year-old lady who was admitted to [facility] with 3 day history of decreased exercise tolerance and increasing fatigue. During her evaluation in the emergency department the patient was found to have elevated troponin I levels consistent with an acute NSTEMI. She underwent cardiac catheterization yesterday was found to have severe three- vessel CAD and an LVEF 60%. The patient has been recommended for CABG. I concur with this recommendation. The patient will be allowed to recover from her acute cardiac event and surgery is tentatively scheduled for Monday, May 30, 2016. The assessment and plan as outlined above was discussed with the patient and/or family members who expressed understanding and agreement. All questions were answered. Qualifiers: Myocardial infarction ST status: non-ST elevation myocardial infarction Qualified Code(s): I21.4 - Non-ST elevation (NSTEMI) myocardial infarction - History of Present Illness Consult date: 05/26/16 Requesting physician: Paul Snow Consult reason: CABG evaluation. Chief complaint: NSTEMI History of present illness: Ms. Salter is a 80 year old lady who has not seen a physician for several decades. The patient began complaining of increasing fatigue and tiredness approximately 3 days prior to admission. That time the patient states that simple activities such as walking in her house would produce profound fatigue. When speaking with the patient and the family this morning, the daughter believes that the fatigue and tiredness has been present for at least one year. The patient also complains of night sweats which opened on the same day as the onset of current symptoms. The patient was eventually evaluated at the [facility] after encouragement by her . During her evaluation, patient was noted to have elevated troponin I levels consistent with an acute NSTEMI. Patient underwent cardiac catheterization yesterday and was found to have severe 3 vessel CAD and an LVEF 60%. In particular the patient has a 90% proximal LAD lesion, tandem 90% and 75% mid LAD lesions, a 70-80% proximal OM1 lesion, an 80% proximal OM2 lesion, and a completely occluded proximal RCA. The patient has been recommended for CABG. Past Med Surg Social Fam HX - Past Medical History Medical history: no medical history Psychiatric history: no psych history - Past Surgical History Surgical History: no surgical history - Social History Smoking Status: Current every day smoker Packs per day: 0.5 Smokeless Tobacco Status: No Alcohol use: none Drug use: none Occupational status: retired Current living situation: Home - Independent Activity Level: Independent ambulation Recent Out of Country Travel Within the Last 8 Weeks: No Exposure or Possible Exposure to Illness During Travel: No Medications and Allergies No Known Home Drugs 05/25/16 [History] Allergies No Known Allergies Allergy (Verified 05/25/16 10:05) All Systems Review: A 10-system review of systems was performed and is negative for pertinent findings except as documented above in the HPI. Physical Examination General: Conversant, No Apparent Distress HEENT: Atraumatic, Normocephaly, Trachea midline Neck: No JVD, Normal carotid pulses Cardiac: Reg Rate and Rhythm, Normal S1 and S2, No Murmur Lungs: Normal Breath Sounds, No Wheeze, Rales, Rhonchi Neuro: Alert and responsive, No focal deficits noted, Motor nerves intact, Sensory nerves intact Vascular: Normal capillary refill Abdomen: Soft, Non-tender Skin: No rashes noted on visualized skin Musculoskeletal: No Chest Wall Tenderness Extremities: No Clubbing, No Cyanosis, No Edema Results 05/26/16 00:04 05/26/16 00:04 Lab Results, Last 24 hours 05/25/16 05/25/16 05/25/16 16:44 16:44 16:44 WBC Hgb Hct Plt Count APTT 57.0 H D Sodium Potassium 3.3 L Chloride Carbon Dioxide BUN Creatinine Glucose Calcium Magnesium 2.0 Troponin I 19.90 H* 05/25/16 05/26/16 05/26/16 22:33 00:04 00:04 WBC 10.3 Hgb 12.3 D Hct 37.7 Plt Count 181 APTT 143.1 H* D Sodium Potassium Chloride Carbon Dioxide BUN Creatinine Glucose Calcium Magnesium Troponin I 20.54 H* 05/26/16 05/26/16 00:04 06:55 WBC Hgb Hct Plt Count APTT 166.6 H* Sodium 135 L Potassium 3.2 L Chloride 103 Carbon Dioxide 24 BUN 18 Creatinine 0.93 Glucose 104 H Calcium 8.4 L Magnesium 2.1 Troponin I - Imaging Chest Xray: image reviewed (No pneumothorax. NAPD.) Consult Discharge Plan - Plan Referrals: Gay Turner, KEY ACCOUNT DIRECTOR [Advanced Practice Nurse] - 05/31/16 9:00 am (Please show up 30 mins early to fill out paper work. Take with you to your appointment you Picture ID, Ins. Cards. and a list of all medications. Take discharge paper work. If you have to cancel please call [phone] within 24 hours of your appointment. Thanks)
[2016-05-26] MEDS: Metoprolol XL (24 HR) Succ 25 MG TAB.ER.24H PO SCH (09:42)
--- NOTE | 2016-05-26 10:24 | Cardiology Progress Note ---
Date of Encounter: 05/26/16 Time of Encounter: 09:30 Assessment and Plan (1) Acute [place] Current Visit: Yes Status: Acute Per cardiology: -Patient presents with 3 day weakness and fatigue. -ECG with ST elevation in III, and avf. ST depression in I,avr, avl. Q waves noted. reviewed and determined not STEMI. -Initial troponin 19.32. -On asa, beta angelo, statin, heparin drip. -Echo pending. -[facility] 05/25/16 with left main angiographically free of disease, proximal LAD 70% stenosis, Mid LAD 95% and 70% stenosis, 60% proximal circumflex, 95% OM1, 90% OM 2, proximal RCA with 100% stenosis with faint left to right collaterals. Recommended for CABG. -CT surgery was consulted and have set tentative date for CABG as Saturday. -Patient had some arrythmias on telemetry overnight. Patient was noted to have some junctional beats as well as atrial tachycardia. - Will change beta angelo to toprol 12.5 po daily. -Will continue to monitor telemetry. (BESSIE) Qualifiers: Myocardial infarction ST status: non-ST elevation myocardial infarction Qualified Code(s): I21.4 - Non-ST elevation (NSTEMI) myocardial infarction (2) Renal insufficiency Current Visit: Yes Status: Acute Per cardiology: -Creatinine 1.13 on admission. Unknown baseline. -Creatinine 0.93 today. -Management per primary service. (BESSIE) (3) Elevated TSH Current Visit: Yes Status: Acute Per cardiology: -TSH elevated. -No history of hypothyroidism. -Unknown baseline. -Management per primary service. (BESSIE). (4) Tobacco abuse Current Visit: Yes Status: Acute Per cardiology: -Current smoker. -Smoked 0.25 packs per day for 60 years for a 20 pack year history. -Patient states she knows she needs to quit smoking. -Smoking cessation education given. I spent 5 minutes reviewing education. (BESSIE) . (5) Hypokalemia Current Visit: Yes Status: Acute Per cardiology: -K 3.4 on admission. -K 3.2 today. -Will give KCL 40mEq IV x1. -Will recheck BMP tomorrow. (BESSIE) Discussion w patient/family: The assessment and plan as outlined above was discussed with the patient and/or family members who expressed understanding and agreement. All questions were answered. Thank you for involving us in the care of your patient. Please call with any questions. Patient seen and examined with [facility] Paredes Discussed and reviewed with Dr. Allen. Subjective Principal diagnosis: fatigue Interval history: Ms. Salter is a 80 year old female with no significant past medical history. Patient states she has not seen a provider since the of her youngest son, who is 52. Patient presented to ER with weakness. Patient states weakness started on Saturday. She also states that she did not want to come into the hospital, but her made her come. ER performed ECG which showed Sinus rhythm, HR [address] elevation in III, avf and ST depression in I, avr, avl. Q waves noted. reviewed ECG and determined that this was not a STEMI. Patient was admitted to the floor. Patient denies ever having chest pain, heaviness, tightness, or shortness of breath. Pateint is a current smoker and smoked about 0.25 pack per day for 60 years. Patient underwent LHC yesterday and was noted to have severe triple vessel disease with a recommendation for CABG. Patient has been seen and examined by CT surgery with CABG planned for Saturday. Patient denies chest pain overnight. (BESSIE) Objective Vital Signs Temp Pulse Resp BP Pulse Ox 05/26/16 04:50 98.6 F 78 20 116/66 96 05/25/16 23:45 97.8 F 98 14 111/59 96 05/25/16 19:20 97.9 F 85 14 118/80 95 05/25/16 17:30 83 135/118 05/25/16 17:00 86 122/60 05/25/16 16:30 90 106/98 05/25/16 16:15 90 130/75 05/25/16 16:00 78 112/78 05/25/16 11:12 98.2 F 77 16 132/86 96 05/25/16 11:05 72 05/25/16 10:59 16 122/77 General: Conversant, No Apparent Distress HEENT: Atraumatic, Normocephaly, Mucus Membranes Moist Neck: No JVD, Normal carotid pulses Cardiac: Reg Rate and Rhythm, Normal S1 and S2, No Murmur Lungs: Normal Breath Sounds, No Wheeze, Rales, Rhonchi Neuro: Alert and responsive, No focal deficits noted Abdomen: Soft, Non-Tender Skin: No rashes noted on visualized skin, Other (Right groin access site without ecchymosis or hematoma. ) Musculoskeletal: No Chest Wall Tenderness Extremities: No Clubbing, No Cyanosis, No Edema, Normal Pulses Results 05/26/16 00:04 05/26/16 00:04 Lab Results Active Medications Aspirin (Aspirin) 81 mg PO DAILY BETO Stop: 11/25/16 09:01 Last Admin: 05/26/16 08:39 Dose: 81 mg Atorvastatin Calcium (Lipitor) 20 mg PO HS BETO Stop: 11/24/16 21:01 Last Admin: 05/25/16 21:10 Dose: 20 mg Famotidine (Pepcid) 20 mg PO DAILY BETO PRN Reason: Protocol Stop: 11/25/16 09:01 Last Admin: 05/26/16 08:38 Dose: 20 mg Heparin Sodium (Porcine) (Heparin) 3,800 unit 60 unit/kg (3800 unit) IVP Q6HR PRN PRN Reason: SEE COMMENTS Stop: 11/24/16 09:54 Heparin Sodium (Porcine) (Heparin) 1,900 unit 30 unit/kg (1900 unit) IVP Q6H PRN PRN Reason: SEE COMMENTS Stop: 11/24/16 09:54 Last Admin: 05/25/16 17:28 Dose: 1,900 unit Sodium Chloride (0.9 % Sodium Chloride) 500 mls @ 40 mls/hr IVC .[id number] BETO Stop: 11/24/16 11:16 Last Admin: 05/26/16 02:27 Dose: Not Given Heparin Sodium/Dextrose (Heparin 25,000 Unit/500 Ml D5w) 25,000 unit in 500 mls @ 15.241 mls/hr IVC .Q24H BETO; 12 UNIT/KG/HR PRN Reason: Protocol Stop: 11/24/16 10:01 Last Titration: 05/26/16 08:42 Dose: 13.85 unit/kg/hr, 17.6 mls/hr Potassium Chloride 40 meq/ (Lidocaine 2 ml/ Dextrose) 522 mls @ 130.5 mls/hr IVPB ONCE ONE Stop: 05/26/16 12:33 Last Admin: 05/26/16 10:00 Dose: 130.5 mls/hr Metoprolol Succinate (Toprol Xl) 12.5 mg PO DAILY BETO Stop: 11/25/16 09:01 Last Admin: 05/26/16 09:42 Dose: Not Given Laboratory Tests 05/25/16 05/25/16 05/25/16 09:49 09:49 16:44 Hgb Potassium Creatinine 1.13 H Troponin I 19.32 H* 19.90 H* 05/25/16 05/26/16 05/26/16 22:33 00:04 00:04 Hgb 12.3 D Potassium 3.2 L Creatinine 0.93 Troponin I 20.54 H* - Imaging and Cardiology Chest Xray: report reviewed Echo: pending Cardiac cath: report reviewed - EKG Interpretation EKG results cardiology: other (Telemetry reviewed with average HR 78. Patient has episodes of junctional rhythm and atrial tachycardia.) Consult Discharge Plan - Plan Referrals: Gay Turner, CHILDHOOD DEVELOPMENT TEACHER [Advanced Practice Nurse] - 05/31/16 9:00 am (Please show up 30 mins early to fill out paper work. Take with you to your appointment you Picture ID, Ins. Cards. and a list of all medications. Take discharge paper work. If you have to cancel please call [phone] within 24 hours of your appointment. Thanks)
--- NOTE | 2016-05-26 10:33 | ECHO - Doppler Report ---
Echocardiogram Name: Roxana Salter Date of Study: 05/25/2016 Date: 1935 Ht: 62.0 in Medical Record#: [id number] Age: 80 Wt: 140.0 lb Gender: Female BSA: 1.64 Order #: [id number] Location: [facility] Room #: 2N6 Reading Physician: Ilda Allen DO Malter Operator: Bre Hare Ordering Physician: Jhon Burrell MD Primary Physician: None Indications: NSTEMI Impressions: LVEF 60%. Not all myocardial segments were well visualized. Overall, normal LV systolic function. Normal right ventricular size and function. Mild mitral regurgitation. Mild-moderate tricuspid regurgitation. No pulmonary hypertension by TR gradient. Left Ventricular Wall Motion: Rest Echo Findings The mid inferior lateral and basal inferior lateral mcadams were not visualized. All other wall segments showed normal motion. Findings: Study Quality * Technically challenging due to suboptimal echocardiographic windows. ECG Findings * Normal sinus rhythm. Aortic Valve * No aortic regurgitation. * Aortic valve not well visualized. * No aortic stenosis. Left Ventricle * Asymmetric basal septal hypertrophy. * Mild left ventricular diastolic dysfunction. * LVEF 60%. Tricuspid Valve * Normal tricuspid valve structure. * Mild-moderate tricuspid regurgitation. * Estimated RA pressure is 3 mmHg. * Estimated RVSP is 23 mmHg. * No pulmonary hypertension. Pulmonic Valve * Pulmonic valve is not well visualized. * No pulmonic stenosis. * No pulmonic regurgitation. Pulmonary Artery * Pulmonary artery not well visualized. Mitral Valve * No mitral stenosis. MG 2 mmHg. * Mild mitral regurgitation. * Mild mitral annular calcification * Mildly calcified mitral valve leaflets. * Mitral valve not well visualized. Right Atrium * Mildly dilated right atrium. Right Ventricle * Normal right ventricular structure and function. Left Atrium * Mild left atrial enlargement. Interatrial Septum * No evidence of PFO by color Doppler. IVC * Normal IVC dimensions and inspiratory collapse. Pericardium * There is no pericardial effusion present. Aorta * Normally sized aortic root. History History of Smoking Years 60 Packs 0.5 Measurements: BP: 132/ 86 2D Normal Values IVSd: 2.00 cm 0.6 - 1.0 cm LVIDd: 3.30 cm 3.7 - 5.6 cm LVPWd: 1.20 cm 0.6 - 1.1 cm LVIDs: 2.40 cm 1.5 - 3.6 cm AO: 2.80 cm < 4.0 cm LA: 3.10 cm 2.0 - 4.0cm %FS: 27.30 cm >25 % LA volume: 35 Mitral Valve Peak E:1.05 m/sec Peak A:1.34 m/sec E/A Ratio:0.8 Peak E' Lat Fredy:6.14 cm/s Peak E' Med Fredy:4.39 cm/s E/E' Lat Ratio:17.1 E/E' Med Ratio:23.9 Tricuspid Valve TV Regurg Peak Grad: 20.00mmHg TV Regurg Peak Fredy: 2.25m/sec Updated by Ilda Allen on 05/26/2016 10:25:55 AM electronically signed on 05/26/2016 10:28:04 AM with status of Final Wall Motion Vega: 1=Normal, 2=Hypokinesis, 3=Akinesis, 4=Dyskinesis, 5=Aneurysmal, 6=Hyperkinetic, X=Not Visualized (Blank)=Missing
--- NOTE | 2016-05-26 10:41 | Internal Med Progress Note ---
Date of Encounter: 05/26/16 Time of Encounter: 10:36 - Time Spent With Patient 1. Non-STEMI/three-vessel CAD Cardiac catheterization performed on 05/25/2016 showed:90% proximal LAD lesion, tandem 90% and 75% mid LAD lesions, a 70-80% proximal OM1 lesion, an 80% proximal OM2 lesion, and a completely occluded proximal RCA. Troponin peaked at 20.[address] elevation in III, and avf. ST depression in I,avr, avl. Q waves noted. reviewed and determined not STEMI. Continue heparin drip, aspirin, Lipitor, Toprol Cardiothoracic surgery consulted for possible CABG on Saturday 2. Tobacco abuse, smoking cessation counseling given, order nicotine patch as needed 3. Hypokalemia, replete as needed 4. possible acute renal failure likely secondary to dehydration Creatinine was 1.13, today 0.9 5. Elevated TSH worsened for hypothyroidism May start 25 g of levothyroxine in follow-up as an outpatient Greater than 35 minutes - Subjective Interval history: Patient denies any chest pain, shortness of breath, no abdominal pain, no dysuria. Feels fatigued, no fevers - Constitutional Vitals: Temp Pulse Resp BP Pulse Ox 98.6 F 78 20 116/66 96 05/26/16 04:50 05/26/16 04:50 05/26/16 04:50 05/26/16 04:50 05/26/16 04:50 General appearance: Present: A&O X 3 - Head Head exam: Present: atraumatic, normocephalic - Eye Eye exam: Present: PERRL, conjuntiva pink, sclera anicteric Pupils: Present: PERRL - Neck Neck exam general surgery: Present: supple, trachea midline. Absent: lymphadenopathy - Respiratory Respiratory exam: Present: decreased breath sounds, CTAB. Absent: accessory muscle use, rales, rhonchi, wheezes - Cardiovascular Cardiovascular exam: Present: RRR, +S1, +S2. Absent: diastolic murmur, gallop, rubs, systolic murmur - GI/Abdominal GI/Abdominal exam: Present: normal bowel sounds, soft, no peritoneal signs. Absent: distended, tenderness - Extremities Exam Extremities exam: Present: warm, radial pulses palpable and symetrical. Absent : calf tenderness, cyanotic, pedal edema Additional comments: Left groin from a cardiac catheterization does not show any signs of hematoma - Neurological Exam Neurological exam: Present: CN II-XII intact, oriented X3, no focal deficits. Absent: pronater drift, facial droop, speech deficit - Skin Skin exam: Present: dry, intact Internal Medicine: Result - Labs CBC & Chem 7: 05/26/16 00:04 05/26/16 00:04 Labs: Short CBC 05/26/16 Range/Units 00:04 WBC 10.3 (4.3-11.1) K/mcL Hgb 12.3 D (11.5-15.4) g/dL Hct 37.7 (35.3-44.9) % Plt Count 181 (140-400) K/mcL Neutrophils # 7.7 (1.6-8.9) K/mcL BMP 05/25/16 05/26/16 16:44 00:04 Sodium 135 L Potassium 3.3 L 3.2 L Chloride 103 Carbon Dioxide 24 BUN 18 Creatinine 0.93 Glucose 104 H Calcium 8.4 L Cardiac Enzymes 05/25/16 05/25/16 Range/Units 16:44 22:33 Troponin I 19.90 H* 20.54 H* (0-0.03) ng/mL Urine 05/25/16 Range/Units 18:25 Urine Color Dark Yellow (Yellow) Urine Clarity Hazy A (Clear) Urine pH 6.0 (5.0-8.0) pH Units Ur Specific [place] > 1.030 H (1.010-1.025) Urine Protein Negative (Neg-Trace) mg/dL Urine Glucose (UA) Normal (Normal) mg/dL - ABG Interpretation ABG results: PT/INR, D-dimer PT 13.9 Seconds (9.4-12.1) H 05/25/16 09:49 Consult Discharge Plan - Plan Referrals: Gay Turner, MARKETING CAMPAIGN ANALYST [Advanced Practice Nurse] - 05/31/16 9:00 am (Please show up 30 mins early to fill out paper work. Take with you to your appointment you Picture ID, Ins. Cards. and a list of all medications. Take discharge paper work. If you have to cancel please call [phone] within 24 hours of your appointment. Thanks)
[2016-05-26] MEDS: Nicotine 7 MG PATCH.TD24 TD SCH (11:53)
[2016-05-26 14:43] LABS: Activated Partial Thrombo Time 112.6 Seconds (26.0-36.0)
[2016-05-26 14:49] LABS: Heparin anti-factor XA UFH 0.54 IU/mL (0.30-0.70)
[2016-05-26] MEDS: Heparin 25,000 UNIT/500 ML D5W 25,000 UNIT/500 ML MLS IVC SCH (20:06)
[2016-05-27 03:31] LABS: Hematocrit 32.4 % (35.3-44.9); Hemoglobin 11.1 g/dL (11.5-15.4); Mean Corpuscular HGB Conc 34.3 g/dL (31.6-35.5); Mean Corpuscular Hemoglobin 30.7 pg (28.0-33.3); Mean Corpuscular Volume 89.5 fL (83.0-100.0); Mean Platelet Volume 11.3 fL (9.4-12.4); Platelet Count 178 K/mcL (140-400); Red Blood Count 3.62 M/mcL (3.82-4.97); Red Cell Distribution Width 14.2 % (11.5-14.5)
[2016-05-27] MEDS: 0.9 % Sodium Chloride 500 ML IVC SCH ×3 (04:07→16:23)
[2016-05-27] MEDS: *HR* Heparin 5,000 UNIT/ML VIAL IVP PRN (04:13)
[2016-05-27 04:35] LABS: BUN/Creatinine Ratio 21 (6-26); Blood Urea Nitrogen 17 mg/dL (7-20); Calcium 8.8 mg/dL (8.6-10.8); Carbon Dioxide 23 mEq/L (19-29); Chloride 105 mEq/L (98-109); Glucose 105 mg/dL (70-99); Osmolality,Calculated 284 (280-300); Potassium 3.6 mEq/L (3.5-4.5); Sodium 136 mEq/L (136-145); eGFR For African Americans > 60 (> 60); eGFR For Non-African Americans > 60 (> 60)
[2016-05-27] MEDS: Levothyroxine 25 MCG TABLET PO SCH (06:43)
--- NOTE | 2016-05-27 07:28 | Cardiothoracic Progress Note ---
Date of Encounter: 05/27/16 Time of Encounter: 07:26 - Assessment and plan (1) Acute PR Current Visit: Yes Status: Acute The patient is a 80-year-old lady who was admitted to [facility] with 3 day history of decreased exercise tolerance and increasing fatigue. During her evaluation in the emergency department the patient was found to have elevated troponin I levels consistent with an acute NSTEMI. She underwent cardiac catheterization yesterday was found to have severe three- vessel CAD and an LVEF 60%. The patient has been recommended for CABG. I concur with this recommendation. The patient will be allowed to recover from her acute cardiac event and surgery is tentatively scheduled for Monday, May 30, 2016. She also has periods of atrial fibrillation and will probably undergo a maze procedure as well. The assessment and plan as outlined above was discussed with the patient and/or family members who expressed understanding and agreement. All questions were answered. Qualifiers: Myocardial infarction ST status: non-ST elevation myocardial infarction Qualified Code(s): I21.4 - Non-ST elevation (NSTEMI) myocardial infarction - Subjective Interval history: The patient is resting comfortably in her hospital bed. She has no complaints of substernal chest pain or shortness of breath. She remains in paroxysmal atrial fibrillation. Vital Signs, Last 4 Hours Temp Pulse Resp BP Pulse Ox 05/27/16 07:23 97.7 F 89 14 130/67 95 05/27/16 04:00 88 05/27/16 03:50 98.2 F 82 26 125/74 97 Oxgyen Flow Rate Oxygen Flow Rate (LPM) 0 Clinical Data, last 8 Hours Output, Urine Amount 300 Output, Urine Amount 500 Weight 05/25/16 05/26/16 05/27/16 23:59 23:59 23:59 Weight 63.911 kg 65.1 kg 66.9 kg - Physical Examination General: Conversant, No Apparent Distress Neck: No JVD, Normal carotid pulses Cardiac: Normal S1 and S2, No Murmur, Other (Irregular rate and rhythm (atrial fibrillation).) Lungs: Normal Breath Sounds, No Wheeze, Rales, Rhonchi Neuro: Alert and responsive, No focal deficits noted Vascular: Normal capillary refill Musculoskeletal: No Chest Wall Tenderness Extremities: No Clubbing, No Cyanosis, No Edema - Labs 05/27/16 02:49 05/27/16 04:11 Lab Results, Last 24 hours 05/26/16 05/26/16 05/26/16 06:55 14:03 22:37 WBC Hgb Hct Plt Count APTT 166.6 H* 112.6 H* 59.9 H Sodium Potassium Chloride Carbon Dioxide BUN Creatinine Glucose Calcium 05/27/16 05/27/16 05/27/16 02:49 02:49 04:11 WBC 8.3 Hgb 11.1 L Hct 32.4 L Plt Count 178 APTT 50.8 H Sodium 136 Potassium 3.6 Chloride 105 Carbon Dioxide 23 BUN 17 Creatinine 0.81 Glucose 105 H Calcium 8.8 Consult Discharge Plan - Plan Referrals: Gay Turner, FISH HATCHERY INSPECTOR [Advanced Practice Nurse] - 05/31/16 9:00 am (Please show up 30 mins early to fill out paper work. Take with you to your appointment you Picture ID, Ins. Cards. and a list of all medications. Take discharge paper work. If you have to cancel please call [phone] within 24 hours of your appointment. Thanks)
--- NOTE | 2016-05-27 09:01 | Cardiology Progress Note ---
Date of Encounter: 05/27/16 Time of Encounter: 08:00 Assessment and Plan (1) Acute [place] Current Visit: Yes Status: Acute Per cardiology: -Patient presents with 3 day weakness and fatigue. -ECG with ST elevation in III, and avf. ST depression in I,avr, avl. Q waves noted. reviewed and determined not STEMI. -Initial troponin 19.32. -On asa, beta angelo, statin, heparin drip. -LHC 05/25/16 with left main angiographically free of disease, proximal LAD 70% stenosis, Mid LAD 95% and 70% stenosis, 60% proximal circumflex, 95% OM1, 90% OM 2, proximal RCA with 100% stenosis with faint left to right collaterals. Recommended for CABG. -CT surgery was consulted and have set tentative date for CABG as Saturday. -Echocardiogram 05/26/16 with LVEF 60%, mild mitral regurgitation, mild-moderate tricuspid regurgitation, all visualized wall segments with normal motion. -Telemetry reviewed with average HR 77. Frequent PACs noted. Per review of CT surgery note it appears possibly planned MAZE procedure for concerns of A. fib, however telemetry and ECG is reviewed with no evidence of A. fib noted, episodes of junctional bradycardia and atrial tachycardia-- reviewed and discussed with Dr. Allen. -Will continue to monitor telemetry and obtain ECG to confirm PACs and eval for afib. -Possible cardiology sign off pending ECG. (BESSIE) Qualifiers: Myocardial infarction ST status: non-ST elevation myocardial infarction Qualified Code(s): I21.4 - Non-ST elevation (NSTEMI) myocardial infarction (2) Renal insufficiency Current Visit: Yes Status: Acute Per cardiology: -Creatinine 1.13 on admission. Unknown baseline. -Creatinine 0.81 today. -Management per primary service. (BESSIE) (3) Elevated TSH Current Visit: Yes Status: Acute Per cardiology: -TSH elevated. -No history of hypothyroidism. -Unknown baseline. -Management per primary service. (BESSIE). (4) Tobacco abuse Current Visit: Yes Status: Acute Per cardiology: -Current smoker. -Smoked 0.25 packs per day for 60 years for a 20 pack year history. -Patient states she knows she needs to quit smoking. -On nicotine patch. -Smoking cessation education given. I spent 5 minutes reviewing education. (BESSIE) . (5) Hypokalemia Current Visit: Yes Status: Acute Per cardiology: -K 3.4 on admission. -K 3.6 today. -Will add KCL 20mEq daily. -Will recheck BMP tomorrow. (BESSIE) Discussion w patient/family: The assessment and plan as outlined above was discussed with the patient and/or family members who expressed understanding and agreement. All questions were answered. Thank you for involving us in the care of your patient. Please call with any questions. Patient seen and examined with [facility] Paredes Discussed and reviewed with Dr. Allen. Subjective Principal diagnosis: fatigue Interval history: Ms. Salter is a 80 year old female with no significant past medical history. Patient states she has not seen a provider since the of her youngest son, who is 52. Patient presented to ER with weakness. Patient states weakness started on Saturday. She also states that she did not want to come into the hospital, but her made her come. ER performed ECG which showed Sinus rhythm, HR [address] elevation in III, avf and ST depression in I, avr, avl. Q waves noted. reviewed ECG and determined that this was not a STEMI. Patient was admitted to the floor. Patient denies ever having chest pain, heaviness, tightness, or shortness of breath. Pateint is a current smoker and smoked about 0.25 pack per day for 60 years. Patient underwent LHC yesterday and was noted to have severe triple vessel disease with a recommendation for CABG. Patient has been seen and examined by CT surgery with CABG planned for Saturday. Patient denies chest pain overnight. Patient denies need for education. Patient denies questions at this time. (BESSIE) Objective Vital Signs, Last 4 Hours Temp Pulse Resp BP Pulse Ox 05/27/16 08:00 81 05/27/16 07:23 97.7 F 89 14 130/67 95 General: Conversant, No Apparent Distress HEENT: Atraumatic, Normocephaly, Mucus Membranes Moist Neck: No JVD, Normal carotid pulses Cardiac: Reg Rate and Rhythm, Normal S1 and S2, No Murmur Lungs: Normal Breath Sounds, No Wheeze, Rales, Rhonchi Neuro: Alert and responsive, No focal deficits noted Abdomen: Soft, Non-Tender Skin: No rashes noted on visualized skin, Other (Left groin access site without hematoma or ecchymosis. ) Musculoskeletal: No Chest Wall Tenderness Extremities: No Clubbing, No Cyanosis, No Edema, Normal Pulses Results 05/27/16 02:49 05/27/16 04:11 Lab Results Active Medications Aspirin (Aspirin) 81 mg PO DAILY BETO Stop: 11/25/16 09:01 Last Admin: 05/26/16 08:39 Dose: 81 mg Atorvastatin Calcium (Lipitor) 20 mg PO HS BETO Stop: 11/24/16 21:01 Last Admin: 05/26/16 20:00 Dose: 20 mg Chlorhexidine Gluconate (Chlorhexidine Rinse) 15 ml MM BID BETO Stop: 05/28/16 21:01 Famotidine (Pepcid) 20 mg PO DAILY BETO PRN Reason: Protocol Stop: 11/25/16 09:01 Last Admin: 05/26/16 08:38 Dose: 20 mg Heparin Sodium (Porcine) (Heparin) 3,800 unit 60 unit/kg (3800 unit) IVP Q6HR PRN PRN Reason: SEE COMMENTS Stop: 11/24/16 09:54 Heparin Sodium (Porcine) (Heparin) 1,900 unit 30 unit/kg (1900 unit) IVP Q6H PRN PRN Reason: SEE COMMENTS Stop: 11/24/16 09:54 Last Admin: 05/27/16 04:13 Dose: 1,900 unit Sodium Chloride (0.9 % Sodium Chloride) 500 mls @ 40 mls/hr IVC .[id number] BETO Stop: 11/24/16 11:16 Last Admin: 05/27/16 04:07 Dose: 40 mls/hr Heparin Sodium/Dextrose (Heparin 25,000 Unit/500 Ml D5w) 25,000 unit in 500 mls @ 15.241 mls/hr IVC .Q24H BETO; 12 UNIT/KG/HR PRN Reason: Protocol Stop: 11/24/16 10:01 Last Titration: 05/27/16 04:18 Dose: 12.67 unit/kg/hr, 16.1 mls/hr Cefazolin Sodium (Ancef Premix 2,000 Mg/100 Ml) 2,000 mg in 100 mls @ 200 mls/ hr IVPB PREOP ONE PRN Reason: Protocol Stop: 05/29/16 07:57 Levothyroxine Sodium (Synthroid) 25 mcg PO DAILY@0630 [facility] Stop: 11/26/16 06:31 Last Admin: 05/27/16 06:43 Dose: 25 mcg Metoprolol Succinate (Toprol Xl) 12.5 mg PO DAILY [facility] Stop: 11/25/16 09:01 Last Admin: 05/26/16 09:42 Dose: Not Given Nicotine (Nicoderm) 7 mg TD DAILY [facility] PRN Reason: Protocol Stop: 11/25/16 10:46 Last Admin: 05/26/16 11:53 Dose: Not Given Laboratory Tests 05/25/16 05/25/16 05/25/16 09:49 09:49 16:44 Hgb Hct Potassium Creatinine 1.13 H Troponin I 19.32 H* 19.90 H* Triglycerides Cholesterol LDL Cholesterol, Calc VLDL Cholesterol, Calc HDL Cholesterol 05/25/16 05/26/16 05/26/16 22:33 00:04 00:04 Hgb Hct Potassium 3.2 L Creatinine Troponin I 20.54 H* Triglycerides 78 Cholesterol 156 LDL Cholesterol, Calc 91 VLDL Cholesterol, Calc 16 HDL Cholesterol 49 05/27/16 05/27/16 02:49 04:11 Hgb 11.1 L Hct 32.4 L Potassium 3.6 Creatinine 0.81 Troponin I Triglycerides Cholesterol LDL Cholesterol, Calc VLDL Cholesterol, Calc HDL Cholesterol - Imaging and Cardiology Chest Xray: report reviewed Echo: report reviewed Cardiac cath: report reviewed - EKG Interpretation EKG results cardiology: other (Telemetry reviewed with average HR 77, rare PVCs , and frequent PACs noted.) Consult Discharge Plan - Plan Referrals: Gay Turner, CUSTOMS AND BORDER PROTECTION OFFICER [Advanced Practice Nurse] - 05/31/16 9:00 am (Please show up 30 mins early to fill out paper work. Take with you to your appointment you Picture ID, Ins. Cards. and a list of all medications. Take discharge paper work. If you have to cancel please call [phone] within 24 hours of your appointment. Thanks)
[2016-05-27] MEDS: Nicotine 7 MG PATCH.TD24 TD SCH (09:24)
[2016-05-27] MEDS: Aspirin 81 MG TAB.CHEW PO SCH (09:28)
[2016-05-27] MEDS: Metoprolol XL (24 HR) Succ 25 MG TAB.ER.24H PO SCH (09:28)
[2016-05-27] MEDS: Famotidine 20 MG TABLET PO SCH (09:28)
--- NOTE | 2016-05-27 10:16 | Internal Med Progress Note ---
Date of Encounter: 05/27/16 Time of Encounter: 10:15 - Time Spent With Patient 1. Non-STEMI/three-vessel CAD Cardiac catheterization performed on 05/25/2016 showed:90% proximal LAD lesion, tandem 90% and 75% mid LAD lesions, a 70-80% proximal OM1 lesion, an 80% proximal OM2 lesion, and a completely occluded proximal RCA. Troponin peaked at 20.[address] elevation in III, and avf. ST depression in I,avr, avl. Q waves noted. reviewed and determined not STEMI. Continue heparin drip, aspirin, Lipitor, Toprol Cardiothoracic surgery consulted for possible CABG on Saturday 2. Tobacco abuse, smoking cessation counseling given, order nicotine patch as needed 3. Hypokalemia, repleted 4. possible acute renal failure likely secondary to dehydration Creatinine was 1.13, today 0.81 5. Elevated TSH worsened for hypothyroidism Started 25 g of levothyroxine, follow-up as an outpatient with TSH in 6 weeks Greater than 35 minutes - Subjective Interval history: No issues overnight Patient denies any chest pain, shortness of breath, no abdominal pain, no dysuria. Feels fatigued, no fevers - Constitutional Vitals: Temp Pulse Resp BP Pulse Ox 97.7 F 80 14 130/67 95 05/27/16 07:23 05/27/16 09:32 05/27/16 07:23 05/27/16 07:23 05/27/16 07:23 General appearance: Present: A&O X 3 - Head Head exam: Present: atraumatic, normocephalic - Eye Eye exam: Present: PERRL, conjuntiva pink, sclera anicteric Pupils: Present: PERRL - Neck Neck exam general surgery: Present: supple, trachea midline. Absent: lymphadenopathy - Respiratory Respiratory exam: Present: CTAB. Absent: accessory muscle use, rales, rhonchi, wheezes - Cardiovascular Cardiovascular exam: Present: RRR, +S1, +S2. Absent: diastolic murmur, gallop, rubs, systolic murmur - GI/Abdominal GI/Abdominal exam: Present: normal bowel sounds, soft, no peritoneal signs. Absent: distended, tenderness - Extremities Exam Extremities exam: Present: warm, radial pulses palpable and symetrical. Absent : calf tenderness, cyanotic, pedal edema Additional comments: left groin without hematoma - Neurological Exam Neurological exam: Present: CN II-XII intact, oriented X3, no focal deficits. Absent: pronater drift, facial droop, speech deficit - Skin Skin exam: Present: dry, intact Internal Medicine: Result - Labs CBC & Chem 7: 05/27/16 02:49 05/27/16 04:11 Labs: Short CBC 05/27/16 Range/Units 02:49 WBC 8.3 (4.3-11.1) K/mcL Hgb 11.1 L (11.5-15.4) g/dL Hct 32.4 L (35.3-44.9) % Plt Count 178 (140-400) K/mcL BMP 05/27/16 04:11 Sodium 136 Potassium 3.6 Chloride 105 Carbon Dioxide 23 BUN 17 Creatinine 0.81 Glucose 105 H Calcium 8.8 - ABG Interpretation ABG results: PT/INR, D-dimer PT 13.9 Seconds (9.4-12.1) H 05/25/16 09:49 Consult Discharge Plan - Plan Referrals: Gay Turner, DYE FEEDER [Advanced Practice Nurse] - 05/31/16 9:00 am (Please show up 30 mins early to fill out paper work. Take with you to your appointment you Picture ID, Ins. Cards. and a list of all medications. Take discharge paper work. If you have to cancel please call [phone] within 24 hours of your appointment. Thanks)
[2016-05-27 11:05] LABS: Activated Partial Thrombo Time 134.2 Seconds (26.0-36.0)
[2016-05-27 11:15] LABS: Heparin anti-factor XA UFH 0.6 IU/mL (0.30-0.70)
--- NOTE | 2016-05-27 15:04 | Event Note ---
Date of Encounter: 05/27/16 Time of Encounter: 15:00 - Cardiology Event Note Patient reevaluated and denies any chest pain. ECG shows sinus rhythm with PACs. Again telemetry reviewed and discussed with Dr. Allen, no evidence of A. fib appreciated. CT surgery notified. Continue to monitor telemetry. Cardiology signed off, reconsult as needed, follow up as outpatient scheduled. All questions answered.
[2016-05-27] MEDS: Heparin 25,000 UNIT/500 ML D5W 25,000 UNIT/500 ML MLS IVC SCH (19:50)
[2016-05-28] MEDS: 0.9 % Sodium Chloride 500 ML IVC SCH ×2 (04:51→18:02)
[2016-05-28] MEDS: Levothyroxine 25 MCG TABLET PO SCH (05:31)
--- NOTE | 2016-05-28 06:21 | Electrocardiograph Report ---
[address] [place] [address] Test Date: 2016-05-26 Pat Name: Roxana Salter Department: 110 Room: 2N06 Gender: F Telemetry Rn: : 1935 Requested By: Nitesh Bledsoe Order Number: [id number] Reading MD: Paul Snow MD Measurements Intervals [place] Rate: 70 P: 75 MD: 178 QRS: -29 QRSD: 82 T: 84 QT: 416 QTc: 438 Interpretive Statements SINUS RHYTHM WITH FREQUENT SUPRAVENTRICULAR PREMATURE COMPLEXES INFERIOR MYOCARDIAL INFARCTION, PROBABLY RECENT WITH POSTERIOR EXTENSION Electronically Signed On 05-28-2016 6:19:35 EDT by Paul Snow MD
--- NOTE | 2016-05-28 07:19 | Cardiothoracic Progress Note ---
Date of Encounter: 05/28/16 Time of Encounter: 07:18 - Assessment and plan (1) Acute [place] Current Visit: Yes Status: Acute The patient is a 80-year-old lady who was admitted to [facility] with 3 day history of decreased exercise tolerance and increasing fatigue. During her evaluation in the emergency department the patient was found to have elevated troponin I levels consistent with an acute NSTEMI. She underwent cardiac catheterization yesterday was found to have severe three- vessel CAD and an LVEF 60%. The patient has been recommended for CABG. I concur with this recommendation. The patient will be allowed to recover from her acute cardiac event and surgery is tentatively scheduled for Monday, May 30, 2016. The assessment and plan as outlined above was discussed with the patient and/or family members who expressed understanding and agreement. All questions were answered. Qualifiers: Myocardial infarction ST status: non-ST elevation myocardial infarction Qualified Code(s): I21.4 - Non-ST elevation (NSTEMI) myocardial infarction - Subjective Interval history: The patient is resting comfortably in her hospital bed. She has no complaints of substernal chest pain or shortness of breath. Vital Signs, Last 4 Hours Temp Pulse Resp BP Pulse Ox 05/28/16 05:16 98.8 F 76 18 121/66 96 05/28/16 04:50 72 Oxgyen Flow Rate Oxygen Flow Rate (LPM) 0 Clinical Data, last 8 Hours Output, Urine Amount 200 Output, Urine Amount 200 Weight 05/26/16 05/27/16 05/28/16 23:59 23:59 23:59 Weight 65.1 kg 65.7 kg 67.9 kg - Physical Examination General: Conversant, No Apparent Distress Neck: No JVD, Normal carotid pulses Cardiac: Reg Rate and Rhythm, Normal S1 and S2, No Murmur Lungs: Normal Breath Sounds, No Wheeze, Rales, Rhonchi Neuro: Alert and responsive, No focal deficits noted Vascular: Normal capillary refill Musculoskeletal: No Chest Wall Tenderness Extremities: No Clubbing, No Cyanosis, No Edema - Labs 05/27/16 02:49 05/27/16 04:11 Lab Results, Last 24 hours 05/27/16 05/27/16 05/28/16 10:22 17:41 00:54 APTT 134.2 H* D 49.7 H D 76.0 H D 04/03/17 06:30 APTT 87.3 H Consult Discharge Plan - Plan Referrals: Gay Turner, NATIONAL SALES MANAGER [Advanced Practice Nurse] - 05/31/16 9:00 am (Please show up 30 mins early to fill out paper work. Take with you to your appointment you Picture ID, Ins. Cards. and a list of all medications. Take discharge paper work. If you have to cancel please call [phone] within 24 hours of your appointment. Thanks)
[2016-05-28] MEDS: Aspirin 81 MG TAB.CHEW PO SCH (07:32)
[2016-05-28] MEDS: Metoprolol XL (24 HR) Succ 25 MG TAB.ER.24H PO SCH (07:32)
[2016-05-28] MEDS: Famotidine 20 MG TABLET PO SCH (07:33)
[2016-05-28] MEDS: Nicotine 7 MG PATCH.TD24 TD SCH (07:33)
[2016-05-28] MEDS: Chlorhexidine Rinse 15 ML MOUTHWASH MM SCH ×2 (07:34→21:11)
--- NOTE | 2016-05-28 09:21 | Internal Med Progress Note ---
Date of Encounter: 05/28/16 Time of Encounter: 09:19 - Time Spent With Patient 1. Non-STEMI/three-vessel CAD Cardiac catheterization performed on 05/25/2016 showed:90% proximal LAD lesion, tandem 90% and 75% mid LAD lesions, a 70-80% proximal OM1 lesion, an 80% proximal OM2 lesion, and a completely occluded proximal RCA. Troponin peaked at 20.[address] elevation in III, and avf. ST depression in I,avr, avl. Q waves noted. reviewed and determined not STEMI. Continue heparin drip, aspirin, Lipitor, Toprol Cardiothoracic surgery consulted for possible CABG on Saturday ( tomorrow) 2. Tobacco abuse, smoking cessation counseling given, order nicotine patch as needed 3. Hypokalemia, repleted 4. possible acute renal failure likely secondary to dehydration, RESOLVED Creatinine was 1.13, today 0.81 5. Elevated TSH worrisome for hypothyroidism Started on 25 g of levothyroxine, follow-up as an outpatient with TSH in 6 weeks Will sign off , please re-consult as needed Greater than 35 minutes - Subjective Interval history: No complaints Patient denies any chest pain, shortness of breath, no abdominal pain, no dysuria. Feels fatigued, no fevers - Constitutional Vitals: Temp Pulse Resp BP Pulse Ox 98.7 F 66 16 112/56 97 05/28/16 07:00 05/28/16 07:40 05/28/16 07:00 05/28/16 07:00 05/28/16 07:00 General appearance: Present: A&O X 3 - Head Head exam: Present: atraumatic, normocephalic - Eye Eye exam: Present: PERRL, conjuntiva pink, sclera anicteric Pupils: Present: PERRL - Neck Neck exam general surgery: Present: supple, trachea midline. Absent: lymphadenopathy - Respiratory Respiratory exam: Present: CTAB. Absent: accessory muscle use, rales, rhonchi, wheezes - Cardiovascular Cardiovascular exam: Present: RRR, +S1, +S2. Absent: diastolic murmur, gallop, rubs, systolic murmur - GI/Abdominal GI/Abdominal exam: Present: normal bowel sounds, soft, no peritoneal signs. Absent: distended, tenderness - Extremities Exam Extremities exam: Present: warm, radial pulses palpable and symetrical. Absent : calf tenderness, cyanotic, pedal edema - Neurological Exam Neurological exam: Present: CN II-XII intact, oriented X3, no focal deficits. Absent: pronater drift, facial droop, speech deficit - Skin Skin exam: Present: dry, intact Internal Medicine: Result - Labs CBC & Chem 7: 05/27/16 02:49 05/27/16 04:11 - ABG Interpretation ABG results: PT/INR, D-dimer PT 13.9 Seconds (9.4-12.1) H 05/25/16 09:49 Consult Discharge Plan - Plan Referrals: Gay Turner, CHIEF TECHNICAL OFFICER [Advanced Practice Nurse] - 05/31/16 9:00 am (Please show up 30 mins early to fill out paper work. Take with you to your appointment you Picture ID, Ins. Cards. and a list of all medications. Take discharge paper work. If you have to cancel please call [phone] within 24 hours of your appointment. Thanks)
--- NOTE | 2016-05-28 10:11 | Anesthesia Evaluation PreOp ---
Date of Encounter: 05/29/16 Time of Encounter: 07:28 - Past History Planned Operation: CABG Cardiac History: RI (acute NSTEMI) Pulmonary History: Smoker (.5 ppd x years) REHABILITATION MEDICINE PHYSICIAN History: Denies Any Significant HX Other Medical History: Denies Any Significant HX (Patient denies any PMH or PSH but hasn't seen a physician in years) Anesthesia History: No Prior Anesthetic Complications : No Alcohol Use: none Drug use: none Medications and Allergies No Known Home Drugs 05/25/16 [History] Allergies No Known Allergies Allergy (Verified 05/25/16 10:05) - Meds/Allergy Pre-op Review Medications Reviewed: Yes Allergies Reviewed: Yes Beta Blockers on Current Med List: Yes Anesthesia Results - Labs 05/27/16 02:49 05/27/16 04:11 - Imaging EKG: report reviewed Additional studies: cath shows 3 vessel disease, EF 60% Echo shows no wall motion abnormalities, Mild MR and TR Anesthesia Exam Selected Entries 05/29/16 05:44 Temperature 98.9 F Pulse Rate 82 Respiratory Rate 18 Blood Pressure 127/80 O2 Sat by Pulse Oximetry 96 Height: 62in Weight: 64kg NPO (# of Hours): 8hrs Pain Scale: 0 Pain Scale Used: Numeric (1 - 10) - HEENT Pupil (Motor): EOMI Mallampati: II Teeth: Edentulous Oral Opening: Greater than 3 - REHABILITATION MEDICINE PHYSICIAN LOC: Oriented REHABILITATION MEDICINE PHYSICIAN Motor: Normal RUE, Normal LUE, Normal RLE, Normal LLE, Normal Face REHABILITATION MEDICINE PHYSICIAN Sensory: Normal: RUE, LUE, RLE, LLE, Face - Cardiac Rhythm: Regular Murmur: None - Pulmonary Breath Sounds: bilateral Clear Respiratory Effort: Symmetrical Anesthesia Assess/Plan ASA Score: 3 Modified Tressa Scale for Level of Consciousness: Cooperative, oriented, and tranquil Anesthetic Plan: General Monitoring Plan: Standard Monitors, A-Line, PAC Recovery Plan: ICU (Discussed risks of GA, lines, blood products and NAOMI. Questions answered and agrees to proceed.)
--- NOTE | 2016-05-28 11:40 | Electrocardiograph Report ---
[place] [address] Test Date: 2016-05-27 Pat Name: Roxana Salter Department: 110 Room: 2N06 Gender: F Outdoor Illuminating Engineer: : 1935 Requested By: Jorge Grier Order Number: [id number] Reading MD: Ilda Allen Measurements Intervals [place] Rate: 73 P: 73 [place]: 188 QRS: -26 QRSD: 106 T: 87 QT: 359 QTc: 386 Interpretive Statements SINUS RHYTHM WITH SUPRAVENTRICULAR PREMATURE COMPLEXES LEFT VENTRICULAR HYPERTROPHY AND ST-T CHANGE INFERIOR MYOCARDIAL INFARCTION, RECENT Electronically Signed On 05-28-2016 11:39:02 EDT by Ilda Allen
--- NOTE | 2016-05-28 11:55 | Event Note ---
Date of Encounter: 05/28/16 Time of Encounter: 11:30 - Cardiology Event Note Rhythm strips and telemetry reviewed and discussed with Dr. Alfredo, and no evidence of atrial fibrillation appreciated. CT surgery aware. Appears no plans for MAZE procedure tomorrow.
[2016-05-28 19:37] LABS: CK-BB (CK isoenzymes) 0 % (0-0); CK-MB (CK isoenzymes) 2 % (0-4); CK-MM (CK-isoenzymes) 98 % (96-100)
[2016-05-28 19:37] LABS: CK-BB (CK isoenzymes) 0 % (0-0); CK-MB (CK isoenzymes) 1 % (0-4); CK-MM (CK-isoenzymes) 99 % (96-100)
[2016-05-29] MEDS: Levothyroxine 25 MCG TABLET PO SCH (04:00)
[2016-05-29] MEDS: Heparin 25,000 UNIT/500 ML D5W 25,000 UNIT/500 ML MLS IVC SCH ×2 (05:45→18:10)
[2016-05-29] MEDS ORDERED: *HR* Norepinephrine 4 MG/4 ML VIAL IVC ONE (06:57)
[2016-05-29] MEDS ORDERED: *HR* Phenylephrine 10 MG/ML VIAL ONE (06:57)
[2016-05-29] MEDS ORDERED: *HR* Etomidate 20 MG/10 ML AMPUL IVP ONE (06:57)
[2016-05-29] MEDS ORDERED: Protamine Sulfate 250 MG/25 ML VIAL IVP ONE (06:57)
[2016-05-29] MEDS ORDERED: Famotidine 20 MG/2 ML VIAL ONE (06:57)
[2016-05-29] MEDS ORDERED: *HR* Rocuronium Bromide 50 MG/5 ML VIAL ONE ×5 (06:57→14:45)
[2016-05-29] MEDS ORDERED: Tranexamic Acid 1,000 MG/10 ML VIAL ONE ×2 (06:57→08:46)
[2016-05-29] MEDS ORDERED: Nitroglycerin 25 MG/250 ML INFUS..BTL IVC ONE (07:06)
[2016-05-29] MEDS ORDERED: *HR* FentaNYL (PF) 1,000 MCG/20 ML VIAL ONE (07:12)
[2016-05-29] MEDS ORDERED: *HR* Midazolam HCl 5 MG/5 ML VIAL IVP ONE ×4 (07:12→14:22)
[2016-05-29 07:20] LABS: CK Total (Ck Isoenzymes) 432 U/L (20-180)
[2016-05-29 07:20] LABS: CK Total (Ck Isoenzymes) 516 U/L (20-180)
[2016-05-29] MEDS ORDERED: CeFAZolin Pre 2,000 MG/100 ML 2,000 MG/100 ML BAG IVPB ONE (07:28)
[2016-05-29] MEDS ORDERED: *HR* Metoprolol 5 MG/5 ML VIAL IVP ONE (07:53)
--- NOTE | 2016-05-29 08:56 | Anesthesia Procedures ---
Date of Encounter: 05/29/16 Time of Encounter: 08:00 Procedures: Anesthesia - Arterial Line Consent obtained: written consent Time out performed: Yes Sedation: Versed (mg): 1 Sedation: Fentanyl (mcg): 50 Supplemental Oxygen via Nasal Cannula (L/min): 2 Local Anesthetic: Lidocaine 1% Amount of Anesthetic used (mls): 1 Size (Gauge): 20 Length (inches): 5 Technique Used: sterile prep, guide wire technique, direct puncture technique Post-Procedure: line taped into place, dry sterile dressing placed Patient tolerated procedure: well, no complications Complications: none Site: Radial L (attempt x 1) - Central Line Placement Right IJ Consent obtained: written consent Time out performed: Yes Patient placed on monitor/pulse ox: Yes prep: mask, gown, gloves Central line prep: Chlorhexidine scrub Ultrasound used for placement: Yes Technique: Seldinger Lumen Inserted: Introducer Post procedure: sutured in place, good blood return, all ports aspirated, flushed, capped, sterile dressing applied Patient tolerated procedure: well, no complications Complications: none (attempt x 1, swan passed without arrythmias, wedge approx 68 cm)
[2016-05-29] MEDS ORDERED: Albumin Human 5% 25.0 GM/500 ML VIAL ONE ×4 (09:56→17:19)
[2016-05-29] MEDS ORDERED: Protamine Sulfate 50 MG/5 ML VIAL IVP ONE (11:21)
[2016-05-29] MEDS ORDERED: *HR* Dextrose 50 % in Water (Syg) 50 ML SYRINGE ONE (11:24)
[2016-05-29] MEDS ORDERED: *HR* EPINEPHrine 1 MG/ML AMPUL ONE ×3 (11:38→11:57)
[2016-05-29] MEDS ORDERED: *HR* EPINEPHrine 1 MG/10 ML SYRINGE ONE (11:44)
[2016-05-29] MEDS ORDERED: *HR* EPINEPHrine 30 MG/30 ML MDV ONE (11:47)
[2016-05-29] MEDS ORDERED: *HR* FentaNYL (PF) 250 MCG/5 ML VIAL ONE ×3 (12:09→14:22)
[2016-05-29] MEDS ORDERED: niCARdipine 0 MG/0 ML MLS IVC ONE (12:27)
[2016-05-29] MEDS ORDERED: Sodium Bicarbonate 50 MEQ/50 ML VIAL ONE (12:30)
[2016-05-29] MEDS ORDERED: Nitroglycerin 0 MG/0 ML INFUS..BTL IVC ONE (12:33)
[2016-05-29] MEDS ORDERED: Heparin 1,000 UNITS/500 mL NS 500 ML ONE (12:41)
[2016-05-29] MEDS ORDERED: *HR* Adenosine 6 MG/2 ML VIAL IVP ONE ×2 (14:10→14:20)
[2016-05-29] MEDS ORDERED: Esmolol 100 MG/10 ML VIAL IVP ONE ×2 (14:10→14:44)
--- NOTE | 2016-05-29 14:20 | Operative Note ---
Date of procedure: 05/29/16 Pre-op diagnosis: Left femoral vein bleeding Post-op diagnosis: same Procedure: 1. Left groin exploration with repair of left common femoral vein. 2. Insertion of intraaortic balloon pump via left common femoral artery. Complications: None Anesthesia: WAIA Surgeon: Nitin Chicas Scoop Driver: Andrew Rodriguez Estimated blood loss (cc): 50 Specimen: None Condition: critical Disposition: ICU Procedure in Detail: Indications; The patient is a 80 year old female who was undergoing coronary artery bypass grafting. During the procedure it became necessary to place the patient on bypass. The cannula was inserted into the left common femoral vein, but no significant blood flow returned. In addition, some venous bleeding was noted to be occurring around the cannula. The patient was successfully placed on bypass via a right common femoral vein cannula. Vascular surgery was then consulted intraoperatively for further evaluation ant treatment. Procedure: An oblique incision was made along the left groin overlying the cannula with a #15 blade. Through a process of blunt, sharp and electrocautery dissection, the subcutaneous tissue was dissected and the femoral vessels were exposed. This required ligation and division of a venous tributary overlying the femoral vesels. This was performed with silk suture ties. The cannula was removed and was noted to be intact. The expected cannula venotomy was noted to have active venous bleeding and was repaired with a running 6-0 Prolene suture. Exploration of the femoral vessels revealed no evidence of a venous or arterial laceration. The wound was irrigated and meticulous hemostasis was obtained throughout the wound with electrocautery. A needle was used to cannulate the left common femoral artery via a separate access site. A wire was threaded through the needle and the needle was removed. The tract and arterial puncture were progresssively dilated and then a sheath was placed over the wire. The introducer was removed and a balloon pump was advanced over the wire and positioned by Dr. Rodriguez. The wire was removed and the pump was connected. A 6-0 prolene was placed at the arterial puncture to aid in hemostasis. The wound was irrigated and then reapproximated with 2-0 and 3-0 Vicryl suture.
--- NOTE | 2016-05-29 16:04 | Operative Note ---
Date of procedure: 05/29/16 Pre-op diagnosis: Recent NSTEMI Post-op diagnosis: same Procedure: 1. CABG4 (GAONA to LAD, sequential SVG to OM1 and OM 2, SVG to PDA). 2. Endoscopic vein harvesting, greater saphenous vein from right lower extremity. 3. Endoscopic vein harvesting, greater saphenous vein from left lower extremity. 4. Postoperative IABP insertion. 5. ECMO insertion. Implants: None. Complications: None. Anesthesia: GETA Surgeon: Andrew Rodriguez Co-Surgeon: Nitin Chicas Legal Service Specialist: Solo Miles Specimen: None. Condition: critical Disposition: ICU Procedure in Detail: INDICATIONS FOR OPERATION: The patient is is a 80 year old lady who has not seen a physician for several decades. The patient began complaining of increasing fatigue and tiredness approximately 3 days prior to admission. That time the patient states that simple activities such as walking in her house would produce profound fatigue. When speaking with the patient and the family, the daughter believes that the fatigue and tiredness has been present for at least one year. The patient also complains of night sweats which happened on the same day as the onset of current symptoms. The patient was eventually evaluated at [facility] after encouragement by her . During her evaluation, patient was noted to have elevated troponin I levels consistent with an acute NSTEMI. The patient underwent cardiac catheterization yesterday and was found to have severe 3 vessel CAD and an LVEF 60%. In particular the patient has a 90% proximal LAD lesion, tandem 90% and 75% mid LAD lesions, a 70-80% proximal OM1 lesion, an 80% proximal OM2 lesion, and a completely occluded proximal RCA. The echocardiogram performed May 25, 2016 revealed an LVEF 60% with normal RV size and function. Mild mitral regurgitation and [id number] tricuspid regurgitation were noted. No pulmonary hypertension was seen based upon the TR gradient. The patient has been recommended for CABG. FINDINGS AT OPERATION: The aorta was of normal caliber without calcification. The right atrium appeared to be tense due to increased pressure and bleed when cannulation sutures were placed. The coronary arteries measure approximately 1.5-2 m in diameter and had mild distal disease. The greater saphenous vein was harvested endoscopically from both the left and right lower extremities from the knee to the groin and was of good quality. The total bypass time was 244 minutes, cross- clamp time was 60 minutes, and intentional hypothermia was 33C. DESCRIPTION OF OPERATION: After obtaining informed operative consent from the patient, she was taken to the operating room where satisfactory general tracheal anesthetic was induced. Appropriate monitoring lines placed, and the patient's chest, abdomen, and lower extremities were prepped and draped in a sterile fashion. The greater saphenous vein was initially harvested from the right lower extremity for knee to the groin and was of fair quality. One usable segment of vein was able to be used. The greater saphenous vein was then harvested endoscopically from the left lower extremity from the knee to the mid thigh and was of good quality. The subcutaneous tissue and skin edges were reapproximated with running Vicryl sutures. Simultaneously a standard median sternotomy incision was made and the sternum divided. The LAD was taken down from its bed and side branches divided between hemoclips. The sternum was in the pericardium was opened and reflected laterally. The patient was prepared for cannulation by placing pursestring sutures in the distal ascending aorta, mid-ascending aorta, and upper right atrial body. No discernible right atrial appendage could be identified. Upon placement of the right atrial sutures, bleeding was noted from the needle holes (however, this did not cause excessive bleeding after cannulation.) The patient was heparinized and when the ACT was greater than 200 seconds the distal ascending aorta was cannulated followed by placement of a dual stage cannula for the right atrial body and into the IVC. A stab-in antegrade metabolic and was placed in the mid-ascending aorta. The patient was placed on bypass and the patient was cooled to 33C. The distal targets were identified and the aorta was crossclamped. The patient received 700 mL of cold antegrade crystalloid cardioplegia through the aortic root and the patient's heart obtained rapid diastolic arrest. The distal RCA was opened with a [place] blade and the vein was anastomosed in an end-to-side fashion using a running 7-0 Prolene suture. The anastomosis was found to be hemostatic and the patient received another dose of cold antegrade crystalloid cardioplegia through the aortic root. The OM2 branch was opened with a [place] blade and the vein was anastomosed in an end-to-side fashion using a running 7- 0 Prolene suture. The anastomosis was found to be hemostatic. The OM1 branch was opened with a [place] blade and the vein was opened in longitudinal fashion so that a [id number]-wd-[id number] anastomosis could be completed using a running 7-0 Prolene suture. The anastomosis was found to be hemostatic and the patient received a final dose of cold antegrade crystalloid cardioplegia through the aortic root. The LAD was opened with a [place] blade and the GAONA was anastomosed to the LAD in an end-to-side fashion using a running 7-0 Prolene suture. Anastomosis found to be hemostatic and the mammary pedicle was tacked to the epicardium using an interrupted 5-0 silk suture. Rewarming was begun during this anastomosis. The aortic cross-clamp was released and the heart distended. The veins were measured and cut at appropriate lengths. A partial occluding clamps in place across the midascending aorta and the antegrade cardioplegia cannula was removed. An additional aortotomy site was admitted 11 blade and both sites were enlarged with a 4 mm punch. The veins were then anastomosed in an end-to-side fashion to the aorta using running 5-0 Prolene suture. The vein grafts were occluded with bulldog clamps and de-aired with a 25-gauge needle prior to removing the partial occluding clamp. The proximal distal anastomoses were found to be hemostatic and the proximal anastomoses were marked with radiopaque loops. Two right ventricular temporary epicardial pacing leads were placed, and 3 chest tube placed, 2 in the mediastinum and one into the left pleural space. During rewarming the patient's heart regained normal sinus rhythm spontaneously. When the patient's systemic temperature reached 36 C, she was ventilated to receive volume. She was then weaned from bypass required no inotropic support. Protamine is administered and the venous cannulas removed. When the anus purse string suture was secured there was bleeding from the torn right atrial body. His required 3 pledgeted 4- 0 Prolene sutures in order to gain hemostasis. FloSeal and Gelfoam were also placed along the suture lines for additional hemostasis. During this process the patient's systolic pressure began to deteriorate and her pulmonary pressures began to increase. It was determined at this point that the patient should be placed back on bypass to allow for cardiac arrest. Since the right atrial body tissue was thin and easily torn with sutures, it was decided not to reattempt atrial cannulation. A percutaneous femoral venous cannula was used for re-initiation of bypass. The left femoral vein was cannulated; however, low flow was noted through the cannula and it was thought that the cannula was in poor position. The right femoral vein was then cannulated and had good flow. Bypass was re-initiated and the patient's heart allowed to rest for several minutes. In the meantime Dr. Nitin Chicas, an [place] vascular surgeon, was contacted and asked to assist with the left femoral vein closure. This portion of the operative report will be dictated in detail by him. Briefly though the skin and subcutaneous tissue was opened along the inguinal fold to the level of the femoral vein. The venotomy was identified and closed with a 6-0 Prolene suture. The left femoral artery was identified and an intraaortic balloon pump was placed (percutaneously) through the skin and subcutaneous tissue below the inguinal incision and into the artery. The balloon pump was then placed using the Seldinger technique. A 6-0 Prolene suture was used to tighten the aortotomy around the balloon pump. The subcutaneous tissue and skin edges were reapproximated using running Vicryl sutures. At this time it was decided to reattempt weaning the patient. The patient was weaned from bypass and was placed on epinephrine drip for systolic pressure and contractility. Dr. Jasson Zaman, an [place] marketing analytics manager, was consulted to evaluate the cardiac function intraoperatively. According to his findings, the LV function was normal (approximately 50-60%); however, the patient had severe MR due to posterior papillary muscle tethering by the inferior wall infarction. In addition, the patient had moderate to severe RV dysfunction. A review of the preoperative echocardiogram by Dr. Zaman showed similar findings which were not reported. The patient tolerated the weaning and was off bypass for approximately 30 minutes when she developed SVT. With this rapid rhythm, the patient had a decrease in her systolic pressure and was given adenosine to help slow the heart rate. This was unsuccessful and ECMO initiation was considered. The cardiopulmonary bypass was re-initiated a third time for cardiac support. I spoke with Dr. Wilbert Eduardo, an [facility] cardiothoracic surgeon, regarding this plan and possible transfer. It was decided that the patient should be placed on ECMO and transferred to [facility] [place]. The ECMO device was prepared and the cannulae were switched from cardiopulmonary bypass to ECMO. Flow was initiated at 4 L/m. Blood gases performed in the operating room showed acceptable ABGs, base excess, and hematocrit. Both the aortic and venous cannulas were secured to the skin several times to prevent dislodgment. The sternotomy incision was left opened and 2 lap sponges were placed in the anterior mediastinum. The cannulae and chest tubes were covered with a towel and a Vi-Drape was applied to the skin. The patient was then transferred to the ICU and critical postoperative condition. Arrangements for transfer to [facility] were in process during transfer. - Open Heart Detail CARLTON (Internal Mammary Artery) Usage: Yes Cardiopulmonary Bypass Time (mins): 244 Aortic Cross Clamp Time (mins): 60 Intentional Hypothermia Temperature (C.): 33
[2016-05-29] MEDS ORDERED: Sodium Bicarbonate 50 MEQ/50 ML VIAL IVP ONE (16:05)
[2016-05-29] MEDS ORDERED: Ringers Solution, Lactated 1,000 ML ONE (16:15)
--- NOTE | 2016-05-29 16:18 | Event Note ---
Date of Encounter: 05/29/16 Time of Encounter: 14:00 - Cardiology Event Note Called to OR to assist with intraoperative NAOMI. Intraoperative NAOMI findings: - mild LV systolic dysfunction with severe hypokinesis to akinesis of the inferior wall - moderate-severe RV hypokinesis - dilated RA with bowing of the interatrial septum into the LA consistent with elevated right atrial pressure - restricted motion of the posterior mitral valve leaflet with severe MR I reviewed the patient's preoperative TTE performed on 05/25/16. It was a suboptimal quality study. Mitral regurgitation only appeared mild, although was suboptimally evaluated. There was moderate-severe RV dysfunction with moderate TR. Findings were discussed with cardiothoracic surgery (Dr. Rodriguez) and anesthesiology (Dr. Dean). Jasson Zaman MD, [facility]
[2016-05-29 16:54] LABS: Hemoglobin 12.4 g/dL (11.5-15.4); Immature Platelets 5.3 % (1.1-6.1); Mean Corpuscular HGB Conc 34.4 g/dL (31.6-35.5); Mean Corpuscular Hemoglobin 29.5 pg (28.0-33.3); Mean Corpuscular Volume 85.7 fL (83.0-100.0); Mean Platelet Volume 10.1 fL (9.4-12.4); Nucleated Red Blood Cells 0.2 /100 WBC (0); Red Cell Distribution Width 14.6 % (11.5-14.5)
[2016-05-29 16:55] LABS: BUN/Creatinine Ratio 13 (6-26); Blood Urea Nitrogen 12 mg/dL (7-20); Calcium 7.8 mg/dL (8.6-10.8); Carbon Dioxide 21 mEq/L (19-29); Chloride 111 mEq/L (98-109); Glucose 199 mg/dL (70-99); Osmolality,Calculated 309 (280-300); Potassium 3.6 mEq/L (3.5-4.5); Sodium 147 mEq/L (136-145); eGFR For African Americans > 60 (> 60); eGFR For Non-African Americans 59 (> 60)
[2016-05-29 17:05] LABS: ABG Base Excess 1.7 mEq/L (-2.0 to 3.0); ABG Glucose 90 mg/dL (60-95); ABG HCO3 26.6 mEQ/L (21-27); ABG Hematocrit 31 % (35-51); ABG Ionized Calcium 1.11 mmol/L (1.15-1.35); ABG Oxygen Saturation 100 % (95-98); ABG PCO2 42 mmHg (35-45); ABG PH 7.41 pH Units (7.32-7.45); ABG PO2 430 mmHg (85-104); ABG TCO2 27.9 mEq/L (20-26)
[2016-05-29 17:05] LABS: ABG Base Excess -1.6 mEq/L (-2.0 to 3.0); ABG Glucose 84 mg/dL (60-95); ABG HCO3 22.8 mEQ/L (21-27); ABG Hematocrit 23 % (35-51); ABG Ionized Calcium 0.97 mmol/L (1.15-1.35); ABG Oxygen Saturation 100 % (95-98); ABG PCO2 36 mmHg (35-45); ABG PH 7.41 pH Units (7.32-7.45); ABG PO2 181 mmHg (85-104); ABG TCO2 23.9 mEq/L (20-26)
[2016-05-29 17:06] LABS: ABG Glucose 209 mg/dL (60-95); ABG HCO3 22.9 mEQ/L (21-27); ABG Hematocrit 21 % (35-51); ABG Ionized Calcium 0.88 mmol/L (1.15-1.35); ABG Oxygen Saturation 100 % (95-98); ABG PCO2 33 mmHg (35-45); ABG PH 7.45 pH Units (7.32-7.45); ABG PO2 470 mmHg (85-104); ABG TCO2 23.9 mEq/L (20-26)
[2016-05-29 17:06] LABS: ABG Base Excess 0.3 mEq/L (-2.0 to 3.0); ABG Glucose 173 mg/dL (60-95); ABG HCO3 23.8 mEQ/L (21-27); ABG Hematocrit 21 % (35-51); ABG Ionized Calcium 0.96 mmol/L (1.15-1.35); ABG Oxygen Saturation 100 % (95-98); ABG PCO2 32 mmHg (35-45); ABG PH 7.48 pH Units (7.32-7.45); ABG PO2 455 mmHg (85-104); ABG TCO2 24.8 mEq/L (20-26)
[2016-05-29 17:06] LABS: ABG Base Excess 0.4 mEq/L (-2.0 to 3.0); ABG Glucose 156 mg/dL (60-95); ABG HCO3 24.3 mEQ/L (21-27); ABG Hematocrit 23 % (35-51); ABG Ionized Calcium 0.96 mmol/L (1.15-1.35); ABG Oxygen Saturation 100 % (95-98); ABG PCO2 35 mmHg (35-45); ABG PH 7.45 pH Units (7.32-7.45); ABG PO2 368 mmHg (85-104); ABG TCO2 25.4 mEq/L (20-26)
[2016-05-29 17:07] LABS: ABG Base Excess 0.9 mEq/L (-2.0 to 3.0); ABG Glucose 120 mg/dL (60-95); ABG HCO3 25.1 mEQ/L (21-27); ABG Hematocrit 23 % (35-51); ABG Ionized Calcium 0.99 mmol/L (1.15-1.35); ABG Oxygen Saturation 100 % (95-98); ABG PCO2 37 mmHg (35-45); ABG PH 7.44 pH Units (7.32-7.45); ABG PO2 390 mmHg (85-104); ABG TCO2 26.2 mEq/L (20-26)
[2016-05-29 17:07] LABS: ABG Base Excess -5.3 mEq/L (-2.0 to 3.0); ABG Glucose 80 mg/dL (60-95); ABG HCO3 20.7 mEQ/L (21-27); ABG Hematocrit 20 % (35-51); ABG Ionized Calcium 1.32 mmol/L (1.15-1.35); ABG Oxygen Saturation 99 % (95-98); ABG PCO2 42 mmHg (35-45); ABG PO2 140 mmHg (85-104)
[2016-05-29 17:08] LABS: ABG Base Excess -3.1 mEq/L (-2.0 to 3.0); ABG Glucose 202 mg/dL (60-95); ABG HCO3 17.9 mEQ/L (21-27); ABG Hematocrit 17 % (35-51); ABG Ionized Calcium 0.52 mmol/L (1.15-1.35); ABG Oxygen Saturation 100 % (95-98); ABG PO2 653 mmHg (85-104); ABG TCO2 18.4 mEq/L (20-26)
[2016-05-29 17:09] LABS: ABG Base Excess 3.6 mEq/L (-2.0 to 3.0); ABG Glucose 205 mg/dL (60-95); ABG HCO3 28.5 mEQ/L (21-27); ABG Hematocrit 18 % (35-51); ABG Ionized Calcium 1.53 mmol/L (1.15-1.35); ABG Oxygen Saturation 100 % (95-98); ABG PCO2 45 mmHg (35-45); ABG PH 7.41 pH Units (7.32-7.45); ABG PO2 494 mmHg (85-104); ABG TCO2 29.9 mEq/L (20-26)
[2016-05-29 17:10] LABS: ABG Base Excess -1.6 mEq/L (-2.0 to 3.0); ABG Glucose 217 mg/dL (60-95); ABG HCO3 22.8 mEQ/L (21-27); ABG Hematocrit 24 % (35-51); ABG Ionized Calcium 1.14 mmol/L (1.15-1.35); ABG Oxygen Saturation 100 % (95-98); ABG PCO2 36 mmHg (35-45); ABG PH 7.41 pH Units (7.32-7.45); ABG PO2 441 mmHg (85-104); ABG TCO2 23.9 mEq/L (20-26)
[2016-05-29 17:10] LABS: ABG Base Excess 2.4 mEq/L (-2.0 to 3.0); ABG Glucose 229 mg/dL (60-95); ABG HCO3 27.8 mEQ/L (21-27); ABG Hematocrit 24 % (35-51); ABG Ionized Calcium 1.14 mmol/L (1.15-1.35); ABG Oxygen Saturation 100 % (95-98); ABG PCO2 47 mmHg (35-45); ABG PH 7.38 pH Units (7.32-7.45); ABG PO2 397 mmHg (85-104); ABG TCO2 29.2 mEq/L (20-26)
[2016-05-29 17:11] LABS: VBG HCO3 27.7 mEq/L (21-27); VBG Ionized Calcium 1.08 mmol/L (1.15-1.35); VBG PH 7.37 pH Units (7.32-7.42)
[2016-05-29 17:11] LABS: Platelet Count 34 K/mcL (140-400)
[2016-05-29 17:12] LABS: ABG Base Excess -1.8 mEq/L (-2.0 to 3.0); ABG Glucose 167 mg/dL (60-95); ABG Hematocrit 29 % (35-51); ABG Ionized Calcium 1.17 mmol/L (1.15-1.35); ABG Oxygen Saturation 100 % (95-98); ABG PCO2 52 mmHg (35-45); ABG PH 7.29 pH Units (7.32-7.45); ABG PO2 494 mmHg (85-104); ABG TCO2 26.6 mEq/L (20-26)
[2016-05-29 17:12] LABS: ABG Base Excess -4.6 mEq/L (-2.0 to 3.0); ABG Glucose 174 mg/dL (60-95); ABG HCO3 23.1 mEQ/L (21-27); ABG Hematocrit 34 % (35-51); ABG Ionized Calcium 1.19 mmol/L (1.15-1.35); ABG Oxygen Saturation 100 % (95-98); ABG PCO2 54 mmHg (35-45); ABG PH 7.24 pH Units (7.32-7.45); ABG PO2 425 mmHg (85-104); ABG TCO2 24.8 mEq/L (20-26)
[2016-05-29 17:12] LABS: VBG HCO3 26.8 mEq/L (21-27); VBG Ionized Calcium 1.13 mmol/L (1.15-1.35); VBG PH 7.28 pH Units (7.32-7.42)
[2016-05-29] MEDS ORDERED: Heparin 25,000 UNIT/500 ML D5W 25,000 UNIT/500 ML MLS IVC SCH (17:15)
[2016-05-29] MEDS ORDERED: Calcium Gluconate 1,000 MG in D5% in Water 100 ML IVPB ONE (17:17)
[2016-05-29 17:19] LABS: Eosinophils # 0.4 K/mcL (0.0-0.6); Lymphocytes # 2.5 K/mcL (0.6-4.6); Monocytes # 0.3 K/mcL (0.0-1.3); Platelet Estimate Marked Decrease (Normal)
[2016-05-29 17:21] LABS: INR 3.9
[2016-05-29 17:23] LABS: Prothrombin Time 43.8 Seconds (9.4-12.1)
[2016-05-29] MEDS ORDERED: Potassium Chloride 40 MEQ/200 ML BAG IVPB PRN (17:23)
[2016-05-29] MEDS ORDERED: Insulin Regular, Human 100 UNIT/ML IV PRN (17:23)
[2016-05-29] MEDS ORDERED: Acetaminophen 650 MG RECTAL SUPP RC PRN (17:23)
[2016-05-29] MEDS ORDERED: Ondansetron 4 MG/2 ML VIAL IVP PRN (17:23)
[2016-05-29] MEDS ORDERED: Calcium Chloride 1,000 MG in 0.9 % Sodium Chloride 100 ML IVPB PRN (17:23)
[2016-05-29] MEDS ORDERED: *HR* OxyCODONE/APAP 5/325 TABLET PO PRN (17:23)
[2016-05-29] MEDS ORDERED: *HR* Morphine 2 MG/ML SYRINGE IVP PRN ×2 (17:23)
[2016-05-29] MEDS ORDERED: Magnesium Sulfate 2 GM in D5% in Water 100 ML IVPB PRN (17:23)
[2016-05-29] MEDS ORDERED: *HR* Dextrose 50 % in Water (Syg) 50 ML SYRINGE IVP PRN (17:23)
[2016-05-29] MEDS ORDERED: Acetaminophen 325 MG TABLET PO PRN (17:23)
[2016-05-29 17:27] LABS: Magnesium 1.7 mg/dL (1.6-2.6); Phosphorous 1.6 mg/dL (2.3-4.7)
[2016-05-29] MEDS ORDERED: Insulin Human Regular 100 UNIT in 0.9 % Sodium Chloride 100 ML IVC SCH (17:30)
[2016-05-29] MEDS ORDERED: EPINEPHrine 1 MG in D5% in Water 250 ML IVC SCH (17:30)
[2016-05-29] MEDS ORDERED: Nitroglycerin 25 MG/250 ML INFUS..BTL IVC SCH (17:30)
[2016-05-29] MEDS ORDERED: Pantoprazole 40 MG VIAL IVP SCH (17:30)
[2016-05-29] MEDS ORDERED: 0.9 % Sodium Chloride 1,000 ML IVC SCH (17:30)
[2016-05-29 17:32] LABS: ABG PH 7.63 pH Units (7.32-7.45)
[2016-05-29 17:33] LABS: ABG PCO2 17 mmHg (35-45)
[2016-05-29 17:56] VITALS: BP 99/72
[2016-05-29] MEDS ORDERED: Metoclopramide 10 MG/2 ML VIAL IVP SCH (18:00)
[2016-05-29] MEDS ORDERED: *HR* Phenylephrine 10 MG/ML VIAL IVC ONE (18:59)
[2016-05-29] MEDS ORDERED: *HR* Magnesium Sulfate 2 GM/50 ML PIGGYBACK IVPB ONE (18:59)
[2016-05-29] MEDS ORDERED: *HR* Heparin 10,000 UNIT/10 ML VIAL IV ONE (18:59)
[2016-05-29] MEDS ORDERED: Sodium Bicarbonate 50 MEQ/50 ML VIAL IVC ONE (18:59)
[2016-05-29] MEDS ORDERED: Albumin Human 25% 25 GM/100 ML IV.SOLN IV ONE (18:59)
[2016-05-29] MEDS ORDERED: Mannitol 25% vial 12.5 GM/50 ML VIAL IVP ONE (18:59)
[2016-05-29] MEDS ORDERED: Heparin 1,000 UNITS/500 mL NS 1,000 UNIT/500 ML IV.SOLN IVC ONE (18:59)
[2016-05-29] MEDS ORDERED: Lidocaine 2% Syringe 100 MG/5 ML IV ONE (18:59)
[2016-05-29] MEDS ORDERED: Chlorhexidine Rinse 15 ML MOUTHWASH MM SCH (21:00)
[2016-05-30] MEDS ORDERED: ceFAZolin 2,000 MG in D5% in Water 100 ML IVPB SCH
[2016-05-30] MEDS ORDERED: Aspirin Enteric Coated 81 MG Tablet PO SCH (09:00)
[2016-05-30 11:28] LABS: ABG Base Excess -5.7 mEq/L (-2.0 to 3.0); ABG Glucose 131 mg/dL (60-95); ABG HCO3 20.2 mEQ/L (21-27); ABG Hematocrit 22 % (35-51); ABG Ionized Calcium 1.35 mmol/L (1.15-1.35); ABG Oxygen Saturation 99 % (95-98); ABG PCO2 41 mmHg (35-45); ABG PO2 167 mmHg (85-104); ABG TCO2 21.5 mEq/L (20-26)
[2016-05-30 11:29] LABS: ABG Base Excess -3.8 mEq/L (-2.0 to 3.0); ABG Glucose 229 mg/dL (60-95); ABG HCO3 21.5 mEQ/L (21-27); ABG Hematocrit 19 % (35-51); ABG Ionized Calcium 1.26 mmol/L (1.15-1.35); ABG Oxygen Saturation 100 % (95-98); ABG PCO2 39 mmHg (35-45); ABG PH 7.35 pH Units (7.32-7.45); ABG PO2 460 mmHg (85-104); ABG TCO2 22.7 mEq/L (20-26)
[2016-05-30 11:29] LABS: ABG Base Excess -8.3 mEq/L (-2.0 to 3.0); ABG Glucose 156 mg/dL (60-95); ABG HCO3 16.4 mEQ/L (21-27); ABG Hematocrit 20 % (35-51); ABG Ionized Calcium 1.13 mmol/L (1.15-1.35); ABG Oxygen Saturation 100 % (95-98); ABG PCO2 29 mmHg (35-45); ABG PH 7.36 pH Units (7.32-7.45); ABG PO2 184 mmHg (85-104); ABG TCO2 17.3 mEq/L (20-26)
[2016-05-30 11:32] LABS: ABG Base Excess 0.5 mEq/L (-2.0 to 3.0); ABG Glucose 195 mg/dL (60-95); ABG HCO3 25.4 mEQ/L (21-27); ABG Hematocrit 29 % (35-51); ABG Oxygen Saturation 100 % (95-98); ABG PCO2 41 mmHg (35-45); ABG PO2 223 mmHg (85-104); ABG TCO2 26.7 mEq/L (20-26)
[2016-05-30 11:33] LABS: ABG Base Excess -2.6 mEq/L (-2.0 to 3.0); ABG Glucose 184 mg/dL (60-95); ABG HCO3 23.7 mEQ/L (21-27); ABG Hematocrit 29 % (35-51); ABG Ionized Calcium 1.06 mmol/L (1.15-1.35); ABG Oxygen Saturation 100 % (95-98); ABG PCO2 47 mmHg (35-45); ABG PH 7.31 pH Units (7.32-7.45); ABG PO2 389 mmHg (85-104); ABG TCO2 25.1 mEq/L (20-26)
[2016-05-30 11:33] LABS: ABG Base Excess -4.9 mEq/L (-2.0 to 3.0); ABG Glucose 172 mg/dL (60-95); ABG HCO3 16.6 mEQ/L (21-27); ABG Hematocrit 24 % (35-51); ABG Ionized Calcium 1.09 mmol/L (1.15-1.35); ABG Oxygen Saturation 100 % (95-98); ABG PH 7.55 pH Units (7.32-7.45); ABG PO2 528 mmHg (85-104); ABG TCO2 17.2 mEq/L (20-26)
[2016-05-30 11:34] LABS: ABG Base Excess 0.9 mEq/L (-2.0 to 3.0); ABG Glucose 176 mg/dL (60-95); ABG HCO3 25.2 mEQ/L (21-27); ABG Hematocrit 33 % (35-51); ABG Ionized Calcium 1.12 mmol/L (1.15-1.35); ABG Oxygen Saturation 100 % (95-98); ABG PCO2 38 mmHg (35-45); ABG PH 7.43 pH Units (7.32-7.45); ABG PO2 378 mmHg (85-104); ABG TCO2 26.4 mEq/L (20-26)
[2016-05-30 11:35] LABS: ABG Base Excess -1.2 mEq/L (-2.0 to 3.0); ABG Glucose 166 mg/dL (60-95); ABG HCO3 22.2 mEQ/L (21-27); ABG Hematocrit 37 % (35-51); ABG Ionized Calcium 1.08 mmol/L (1.15-1.35); ABG Oxygen Saturation 100 % (95-98); ABG PCO2 32 mmHg (35-45); ABG PH 7.45 pH Units (7.32-7.45); ABG PO2 398 mmHg (85-104); ABG TCO2 23.2 mEq/L (20-26)
[2016-05-30 12:26] LABS: VBG PH 7.37 pH Units (7.32-7.42)
[2016-05-30 12:27] LABS: VBG HCO3 27.2 mEq/L (21-27); VBG Ionized Calcium 1.06 mmol/L (1.15-1.35)
[2016-05-30 12:33] LABS: ABG HCO3 23.7 mEQ/L (21-27); ABG PCO2 40 mmHg (35-45); ABG PH 7.38 pH Units (7.32-7.45); ABG PO2 375 mmHg (85-104); ABG TCO2 24.9 mEq/L (20-26)
[2016-05-30 12:34] LABS: ABG Base Excess -1.3 mEq/L (-2.0 to 3.0); ABG Glucose 150 mg/dL (60-95); ABG Hematocrit 30 % (35-51); ABG Ionized Calcium 1.16 mmol/L (1.15-1.35); ABG Oxygen Saturation 100 % (95-98)
[2016-05-30 14:23] LABS: ABG PCO2 19 mmHg (35-45)
--- NOTE | 2016-06-04 07:26 | Discharge Summary ---
Date of Encounter: 06/04/16 Time of Encounter: 07:25 - Discharge Diagnosis (1) Acute SC Priority: Primary Status: Acute Qualifiers: Myocardial infarction ST status: non-ST elevation myocardial infarction Qualified Code(s): I21.4 - Non-ST elevation (NSTEMI) myocardial infarction - Discharge Medications Home Medications: No Known Home Drugs 05/25/16 [History] Allergies/Adverse Reactions: Allergies No Known Allergies Allergy (Verified 05/25/16 10:05) Date of admission: 05/25/16 11:11 Primary care physician: PCP NO Consults: 05/25/16 11:16 Consult to Cardiology [CONS] Routine Comment: Consulting Provider: Cardiology Meggan Reason for Consult: STEMI Call Completed: Yes 05/26/16 08:55 Consult to Cardiothoracic Surgery [CONS] Routine Consulting Provider: Cardiothoracic Surgery Meggan Reason for Consult: eval for CABG Call Completed: Yes Procedure(s) Performed: 1. Cardiac catheterization performed May 25, 2016. 2. CABG4 (GAONA to LAD, sequential SVG to OM1 and OM2, SVG to PDA) performed May 29, 2016. 3. Endoscopic vein harvesting, greater saphenous vein from right lower extremity performed May 29, 2016. 4. Endoscopic vein harvesting, greater saphenous vein from left lower extremity performed May 29, 2016. 5. Postoperative IABP insertion performed May 29, 2016. 6. ECMO insertion performed May 29, 2016. Discharging clinician: Andrew Rodriguez Anticipated date of discharge: 05/29/16 - Patient Status Disposition: Transfer Critical Access Hosp Condition: Critical Functional capacity at discharge: bed bound - Discharge Instructions Follow Up With: Deena Balderas CNP [Partnered Physician] - 06/18/16 2:00 pm Gay Turner CNP [Advanced Practice Nurse] - (Please show up 30 mins early to fill out paper work. Take with you to your appointment you Picture ID, Ins. Cards. and a list of all medications. Take discharge paper work. If you have to cancel please call [phone] within 24 hours of your appointment. Thanks) - Hospital Course Hospital course: Ms. Salter is a 80 year old lady who has not seen a physician for several decades. The patient began complaining of increasing fatigue and tiredness approximately 3 days prior to admission. That time the patient states that simple activities such as walking in her house would produce profound fatigue. When speaking with the patient and the family, the daughter believes that the fatigue and tiredness has been present for at least one year. The patient also complains of night sweats which happened on the same day as the onset of current symptoms. The patient was eventually evaluated at [facility] after encouragement by her . During her evaluation, patient was noted to have elevated troponin I levels consistent with an acute NSTEMI. The patient underwent cardiac catheterization yesterday and was found to have severe 3 vessel CAD and an LVEF 60%. In particular the patient has a 90% proximal LAD lesion, tandem 90% and 75% mid LAD lesions, a 70-80% proximal OM1 lesion, an 80% proximal OM2 lesion, and a completely occluded proximal RCA. The echocardiogram performed May 25, 2016 revealed an LVEF 60% with normal RV size and function. Mild mitral regurgitation and [id number] tricuspid regurgitation were noted. No pulmonary hypertension was seen based upon the TR gradient. The patient has been recommended for CABG. The patient underwent CABG 4 on May 29, 2016. The patient was weaned from bypass however had extensive bleeding from her right atrial venous cannulation site due to high right-sided pressures. This was made hemostatic; however, during this time the patient's systolic pressure deteriorated as did her right- sided heart function. The patient was placed back on bypass using right femoral vein venous cannulation. The patient's heart was rested for some time and then re-weaned from bypass. Consideration was made to place patient on ECMO and transfer her to [facility]. During this phone conversation the patient developed SVT and her systemic blood pressure deteriorated again. An intraoperative echocardiogram was obtained and the land inspector stated that she had severe RV dysfunction. At this time ECMO was instituted and arrangements were made to transfer the patient to [facility]. The patient was transferred to the ICU briefly while waiting for transport. - Time Spent with Patient Total time spent providing and/or coordinating discharge services: Physical Examination General: Other (Intubated and sedated.) Neck: No JVD, Normal carotid pulses Cardiac: Reg Rate and Rhythm Lungs: Normal Breath Sounds Vascular: Normal capillary refill Open Heart Registry Aspirin Cont/Prescribed at DC: Yes Beta Juan Jose Cont/Prescribed at DC: Yes Statin Cont/Prescribed at DC: Yes RODOLFO/ARB Cont/Prescribed at DC: Not indicated
== END 2016-05-29 19:00 | disposition short-term general hospital (02) | DRG 3 ==
LOC: EMEROO 09:07 → 2NNU 09:07 → SUATTDRO 11:11 → ICNU 05-29 10:37
PROVIDERS: ADMIT Hospitalist; ATTEND Internal Medicine